=== PATIENT | female | born 1965 | race Caucasian/White ===

== ENCOUNTER 2019-08-07 17:48 | Inpatient (IN) | payer OTHER, MEDICAID, SELFPAY ==
[2019-08-07 18:03] VITALS: BP 181/104; PULSE 81; RESP 18; TEMP 35.1; O2SAT 100; BMI 29.2
[2019-08-07] MEDS: ONDANSETRON 4 MG/2 ML INJ IV (18:13)
[2019-08-07] MEDS: SODIUM CHLORIDE 0.9% 1,000 ML 1000 ML IV (18:14)
[2019-08-07 18:17] LABS: Add Manual Diff / Slide Review NO; Basophils Absolute Auto 100 /uL (0-100); Basophils Percent Auto 0.8 % (0-2); Eosinophils Absolute Auto 0 /uL (0-450); Eosinophils Percent Auto 0.1 % (2-4); Hematocrit 49.8 % (36-46); Hemoglobin 16.6 g/dL (12.0-16.0); Lymphocytes Absolute Auto 1600 /uL (1100-4500); Lymphocytes Percent Auto 10.1 % (25-40); Mean Corpuscular HGB Conc 33.3 % (30-36); Mean Corpuscular Hemoglobin 31.8 PG (26-34); Mean Corpuscular Volume 95.4 fL (80-100); Monocytes Absolute Auto 500 /uL (0-900); Monocytes Percent Auto 3.2 % (3-14); Neutrophils Absolute Auto 13200 /uL (1500-7000); Neutrophils Percent Auto 85.8 % (50-75); Platelet Count 362 X10^3/uL (150-400); Red Blood Cell Count 5.22 X10^6/uL (4.0-5.2); Red Cell Distribution Width 13.8 % (11.6-14.8); White Blood Cell Count 15.4 X10^3/uL (4.5-11.0)
[2019-08-07 18:27] LABS: Alanine Aminotransferase 27 IU/L (<35); Albumin 5.3 g/dL (3.5-5.0); Albumin Globulin Ratio 1.3 (1.0-2.8); Alkaline Phosphatase 155 U/L (38-126); Aspartate Aminotransferase 31 IU/L (14-36); BUN Creatinine Ratio 15.4 (6-22); Bilirubin Total 0.7 mg/dL (0.2-1.3); Blood Urea Nitrogen 16 mg/dL (7-17); Calcium 10.8 mg/dL (8.4-10.2); Carbon Dioxide 21 mmol/L (22-32); Chloride 106 mmol/L (98-107); Globulin 4.1 g/dL (1.7-4.1); Glucose 285 mg/dL (70-100); HEMOLYSIS < 15 (0-50); Potassium 4.2 mmol/L (3.4-5.1); Sodium 142 mmol/L (137-145); Total Protein 9.4 g/dL (6.3-8.2)
--- NOTE | 2019-08-07 18:28 | PC.NURSE ---
Pt refuses to cooperate with assessment. Pt shouting at RNs and RT. Pt demanding PO fluids, not satisfied with offered moist swab.
[2019-08-07 18:33] LABS: Lipase 184 U/L (23-300)
--- NOTE | 2019-08-07 18:53 | ED.NAVMDI ---
HPI - Nausea/Vomiting/Diarrhea General Chief complaint: Nausea/Vomiting/Diarrhea Stated complaint: FEVER, VOMITING Time Seen by Provider: 08/07/19 17:54 Source: patient Mode of arrival: Wheelchair Limitations: no limitations History of Present Illness HPI Narrative: The patient is a 54-year-old female who is very angry agitated and uncooperative. It is really difficult to tell what is real and what is not. No matter where you touch her she complains of pain and discomfort. The patient states that she has been vomiting since this morning. She states ?I can not stop vomiting?. She states this has happened to her before in the past and that she has cyclical vomiting. She denies any hematemesis or coffee-ground emesis. She denies any back pain or dyspnea. Her abdominal pain is crampy in nature and diffuse. She admits to history of pancreatitis but denies a history of any recent fall or injury. She a history of Crohn's disease ulcerative colitis diverticulitis. She smokes cigarettes but does not drink alcohol. She complains of fever chills and sweats without a headache. She has had a mild cough on productive of any sputum. She denies any shortness of breath chest pain palpitations. She has had nausea vomiting and diarrhea without melena or hematochezia. She denies any urinary symptoms. Related Data Previous Rx's Medication Instructions Recorded esomeprazole magnesium [Nexium] 40 mg PO QDAY #30 cap 03/18/17 ibuprofen 800 mg PO QDAY #30 tab 06/19/17 mirtazapine [Remeron] 30 mg PO HS #30 tab 09/03/17 risperidone [Risperdal] 1 mg PO BID #60 tab 09/03/17 Allergies Allergy/AdvReac Type Severity Reaction Status Date / Time cephalexin AdvReac Unknown PANIC Verified 08/07/19 18:03 ATTACK Review of Systems Review of Systems Narrative: Her review of systems are all negative except for those mentioned in the history of present illness. Patient History Medical History (Updated 08/08/19 @ 04:08 by ROHIT Beach) H/O schizophrenia (Acute) Lactic acidosis (Acute) Surgical History (Updated 08/08/19 @ 04:08 by ROHIT Beach) History of cholecystectomy (Acute) Family History (Updated 08/08/19 @ 04:09 by ROHIT Beach) Father H/O agent [place] exposure Social History household members: family Smoking Status: Current every day smoker Smoking Status: Current every day smoker alcohol intake frequency: holidays/special occasions only Substance Use Type: marijuana Exam Narrative Exam Narrative: PHYSICAL EXAM: CONSTITUTIONAL: Awake, Alert, Oriented, Coherent, Cooperative in moderate distress. The patient is lying on her left side in the position. . HEAD: AT/NC EENT: PERRL, FROM of eyes, no discharge, no nystagmus No epistaxis or nasal drainage Oral mucosa is moist and pink, posterior pharynx is without erythema or exudate. NECK: Supple, no obvious JVD, Trachea is midline without stridor, no palpable LN or masses. SPINE: No gross deformity, no palpable tenderness of the cervical, thoracic, lumbar or sacral spine. No CVA tenderness. THORAX: No deformity, retractions, chest wall tenderness, subcutaneous air or crepitice. LUNGS: Clear with symmetrical breath sounds without respiratory distress HEART: Normal heart tones, regular rhythm and rate without murmur. ABDOMEN: Soft, tender diffusely over all 4 quadrants without guarding rebound or rigidity. Bowel sounds are normal. EXTREMITIES: No edema, cyanosis, deformity or tenderness. SKIN: No rash, bruising, petechiae or purpura. NEURO: Awake, alert, oriented, conversive, cranial nerves II-XII are symmetrical and normal, moves all 4 extremities and is ambulatory Initial Vital Signs Initial Vital Signs: Vital Signs Temperature 95.2 F L 08/07/19 18:03 Pulse Rate 81 08/07/19 18:03 Respiratory Rate 18 08/07/19 18:03 Blood Pressure 181/104 H 08/07/19 18:03 Pulse Oximetry 100 08/07/19 18:03 Course Course Course Narrative: 2054 She is not very cooperative. She is very reluctant to answer questions. She is not a good historian at this time. The patient's abdominal series reveals no acute cardiopulmonary pathology or intra-abdominal pathology. Her white blood count is elevated secondary to her vomiting and retching and de margination. Her urinalysis remains pending. Her electrolytes and liver function tests are within normal limits and acceptable. The patient is being treated and hydrated for cyclical vomiting. 2153: The patient has been uncooperative and does not straighten her arm out so that she can receive the IV fluid. Her lactic acid is 4.8. Her white blood count is 15.4. The patient is either severely dehydrated or septic from another cause. Two blood cultures will be obtained on the patient. A noncontrast CT scan of her abdomen has been ordered since she has mild renal insufficiency. This may be due to severe dehydration. The patient is a very poor historian and is very uncooperative. She is refusing all treatment and evaluation. The patient does not realize the potential seriousness of her illness. [address] scan of her abdomen revealed: 1. No obstructive uropathy. 2. Colonic diverticulosis without acute diverticulitis. 3. No bowel obstruction or ascites. The patient's elevated white blood count and lactic acidosis does not appear to be secondary to any acute intra-abdominal pathology. Her CT scan revealed no bowel obstruction, ascites or free air however there were multiple descending colon sigmoid diverticula without any inflammatory changes. There was a tiny fat containing periumbilical hernia and a small hiatal hernia. There was no liver pancreatic or splenic pathology noted nor any appreciable lymphadenopathy. There was no dilated biliary ducts. The patient is being vigorously rehydrated and a repeat lactic acid will be checked on the patient. I urine will also be obtained to check her for urinary tract infection. Her severe lactic acidosis may be secondary to severe dehydration. However, an infection needs to be ruled out. 0110 discussed admitting the patient to the hospital with LUISA Silva. Call back when you have more information including her urinalysis. The patient is refusing to provide us with a urine. She has received 30 cc/kilogram of IV fluid and her repeat lactic acid is 2.4 which remains high. The patient was being treated as though she may have sepsis of unknown etiology at this time 2 blood cultures have been obtained on the patient. 0110 review of her old records reveals that she has not no physician listed in her medical record. The patient has been refusing to provide us with a urine sample. A urine cath specimen has been ordered. The patient has not had a documented fever since being here in the emergency department. 0205 the patient has agreed to being admitted to the hospital. She appears to be much more cooperative at this time but then started vomiting. 8 mg of Zofran has been ordered for the patient as well as 25 mg of Benadryl. This controlled her vomiting earlier during this admission. 0230: I discussed the patient with LUISA Silva who wanted the patient to receive a no other L of fluid and repeat her lactic acid afterwards before she would agree to admit the patient. Orders Ordered: Acetaminophen (Tylenol) 650 mg PO Q6HR PRN PRN Reason: Fever/Mild Pain (1-3) Enoxaparin Sodium (Lovenox) 40 mg SUBCUT DAILY [facility] Last Admin: 08/08/19 09:37 Dose: 40 mg Documented by: PAGE Sodium Chloride (Normal Saline 0.9%) 1,000 mls @ 100 mls/hr IV CONT [facility] Last Admin: 08/08/19 04:54 Dose: 100 mls/hr Documented by: ORALIA Ondansetron HCl (Zofran) 4 mg IV Q6HR [facility] Last Admin: 08/08/19 12:50 Dose: Not Given Documented by: Admin: 08/08/19 05:50 Dose: Not Given Documented by: PARTH Promethazine HCl (Phenadoz) 12.5 mg [place] Q6HR PRN PRN Reason: Nausea And Vomiting Sodium Chloride (Normal Saline 0.9% Flush) 10 ml IV PRN PRN PRN Reason: Flush Sodium Chloride (Normal Saline 0.9% Flush) 10 ml IV BID [facility] Discontinued Medications Diphenhydramine HCl (Benadryl) 50 mg IV NOW ONE Stop: 08/07/19 18:52 Last Admin: 08/07/19 19:23 Dose: 50 mg Documented by: LIYAM Diphenhydramine HCl (Benadryl) 25 mg IV NOW ONE Stop: 08/08/19 02:18 Last Admin: 08/08/19 02:58 Dose: 25 mg Documented by: HUMA Haloperidol (Haldol) 2 mg IM NOW ONE Stop: 08/07/19 21:53 Last Admin: 08/07/19 22:19 Dose: 2 mg Documented by: HARSHIL Sodium Chloride (Normal Saline 0.9%) 1,000 mls @ 1,000 mls/hr IV BOLUS ONE Stop: 08/07/19 18:53 Last Infusion: 08/07/19 22:02 Dose: 0 mls/hr Documented by: Admin: 08/07/19 18:14 Dose: 1,000 mls/hr Documented by: HARSHIL Sodium Chloride (Normal Saline 0.9%) 2,177.25 mls @ 725.75 mls/hr 30 ml/kg infuse over 3 hr (2177.25 ml) IV NOW ONE Stop: 08/08/19 02:13 Last Infusion: 08/08/19 04:20 Dose: 0 mls/hr Documented by: Admin: 08/07/19 23:19 Dose: 725.75 mls/hr Documented by: HARSHIL Piperacillin/Tazobactam/Dextrose (Zosyn) 4.5 gm in 100 mls @ 200 mls/hr IV NOW ONE Stop: 08/08/19 01:33 Last Infusion: 08/08/19 02:57 Dose: 0 mls/hr Documented by: Admin: 08/08/19 02:14 Dose: 200 mls/hr Documented by: HUMA Vancomycin HCl (Vancomycin) 1,000 mg in 200 mls @ 200 mls/hr IV NOW ONE Stop: 08/08/19 02:03 Last Infusion: 08/08/19 04:20 Dose: 0 mls/hr Documented by: Admin: 08/08/19 02:58 Dose: 200 mls/hr Documented by: HUMA Ondansetron HCl 8 mg/ Sodium (Chloride) 54 mls @ 216 mls/hr IV NOW ONE Stop: 08/08/19 02:18 Last Infusion: 08/08/19 03:29 Dose: 0 mls/hr Documented by: Admin: 08/08/19 02:58 Dose: 216 mls/hr Documented by: HUMA Potassium Chloride 40 meq/ (Sodium Chloride) 520 mls @ 130 mls/hr IV NOW ONE Stop: 08/08/19 08:00 Last Admin: 08/08/19 05:54 Dose: 130 mls/hr Documented by: PARTH Cosigned by: RIK Lorazepam (Ativan) 1 mg IV NOW ONE Stop: 08/07/19 22:32 Last Admin: 08/07/19 22:37 Dose: 1 mg Documented by: HARSHIL Ondansetron HCl (Zofran) 4 mg IV NOW ONE Stop: 08/07/19 17:55 Last Admin: 08/07/19 18:13 Dose: 4 mg Documented by: HARSHIL Vancomycin HCl (Vancomycin) 125 mg PO QID [facility] Vital Signs Vital signs: Vital Signs - 8 hr 08/07/19 20:21 08/07/19 21:22 08/07/19 23:18 Pulse Rate 85 54 L 51 L Respiratory Rate 20 20 Blood Pressure [Left Arm] 179/70 H 148/86 H 143/64 H Pulse Oximetry 98 99 99 08/08/19 00:29 Pulse Rate 67 Respiratory Rate 20 Blood Pressure [Left Arm] 181/86 H Pulse Oximetry 96 MDM - Nausea/Vomiting/Diarrhea Lab Data Result diagrams: 08/08/19 03:45 08/08/19 03:45 Labs: Lab Results 08/07/19 08/07/19 08/07/19 Range/Units 18:00 18:00 18:00 WBC 15.4 H (4.5-11.0) X10^3/uL RBC 5.22 H (4.0-5.2) X10^6/uL Hgb 16.6 H (12.0-16.0) g/dL Hct 49.8 H (36-46) % MCV 95.4 (80-100) fL MCH 31.8 (26-34) PG MCHC 33.3 (30-36) % RDW 13.8 (11.6-14.8) % Plt Count 362 (150-400) X10^3/uL Neut % (Auto) 85.8 H (50-75) % Lymph % (Auto) 10.1 L (25-40) % Schley % (Auto) 3.2 (3-14) % Eos % (Auto) 0.1 L (2-4) % Baso % (Auto) 0.8 (0-2) % Neut # (Auto) 04945 H (5593-5782) /uL Lymph # (Auto) 1600 (1276-8441) /uL Schley # (Auto) 500 (0-900) /uL Eos # (Auto) 0 (0-450) /uL Baso # (Auto) 100 (0-100) /uL ESR (0-20) MM/HR Sodium 142 (137-145) mmol/L Potassium 4.2 (3.4-5.1) mmol/L Chloride 106 (98-107) mmol/L Carbon Dioxide 21 L (22-32) mmol/L BUN 16 (7-17) mg/dL Creatinine 1.04 (0.52-1.04) mg/dL Estimated GFR 55.0 L (>60) mL/min BUN/Creatinine Ratio 15.4 (6-22) Glucose 285 H (70-100) mg/dL Lactate (0.7-2.1) mmol/L Calcium 10.8 H (8.4-10.2) mg/dL Magnesium (1.6-2.3) mg/dL Total Bilirubin 0.7 (0.2-1.3) mg/dL AST 31 (14-36) IU/L ALT 27 (<35) IU/L Alkaline Phosphatase 155 H (38-126) U/L C-Reactive Protein (<1.0) mg/dL Total Protein 9.4 H (6.3-8.2) g/dL Albumin 5.3 H (3.5-5.0) g/dL Globulin 4.1 (1.7-4.1) g/dL Albumin/Globulin Ratio 1.3 (1.0-2.8) Lipase 184 (23-300) U/L Procalcitonin (<0.5) ng/mL Urine Color Urine Appearance Urine pH (4.5-8.0) Ur Specific [place] (1.000-1.035) Urine Protein (Negative) Urine Glucose (UA) (Negative) g/dL Urine Ketones (NEGATIVE) Urine Occult Blood (Negative) Urine Nitrate (Negative) Urine Bilirubin (NEGATIVE) Urine Urobilinogen (0.2) E.U./dL Ur Leukocyte Esterase (NEGATIVE) Urine RBC (0-5/HPF) Urine WBC (0-5/HPF) Ur Squamous Epith Cells (0-5/HPF) Urine Bacteria (None) Hyaline Casts (None) Urine Mucus (Negative) Ur Culture Indicated? Ketones (<0.27) mmol/L 08/07/19 08/07/19 08/07/19 Range/Units 18:00 18:00 18:00 WBC (4.5-11.0) X10^3/uL RBC (4.0-5.2) X10^6/uL Hgb (12.0-16.0) g/dL Hct (36-46) % MCV (80-100) fL MCH (26-34) PG MCHC (30-36) % RDW (11.6-14.8) % Plt Count (150-400) X10^3/uL Neut % (Auto) (50-75) % Lymph % (Auto) (25-40) % Schley % (Auto) (3-14) % Eos % (Auto) (2-4) % Baso % (Auto) (0-2) % Neut # (Auto) (4448-2953) /uL Lymph # (Auto) (4296-2681) /uL Schley # (Auto) (0-900) /uL Eos # (Auto) (0-450) /uL Baso # (Auto) (0-100) /uL ESR 4 (0-20) MM/HR Sodium (137-145) mmol/L Potassium (3.4-5.1) mmol/L Chloride (98-107) mmol/L Carbon Dioxide (22-32) mmol/L BUN (7-17) mg/dL Creatinine (0.52-1.04) mg/dL Estimated GFR (>60) mL/min BUN/Creatinine Ratio (6-22) Glucose (70-100) mg/dL Lactate 4.8 H* (0.7-2.1) mmol/L Calcium (8.4-10.2) mg/dL Magnesium (1.6-2.3) mg/dL Total Bilirubin (0.2-1.3) mg/dL AST (14-36) IU/L ALT (<35) IU/L Alkaline Phosphatase (38-126) U/L C-Reactive Protein 2.0 H (<1.0) mg/dL Total Protein (6.3-8.2) g/dL Albumin (3.5-5.0) g/dL Globulin (1.7-4.1) g/dL Albumin/Globulin Ratio (1.0-2.8) Lipase (23-300) U/L Procalcitonin (<0.5) ng/mL Urine Color Urine Appearance Urine pH (4.5-8.0) Ur Specific [place] (1.000-1.035) Urine Protein (Negative) Urine Glucose (UA) (Negative) g/dL Urine Ketones (NEGATIVE) Urine Occult Blood (Negative) Urine Nitrate (Negative) Urine Bilirubin (NEGATIVE) Urine Urobilinogen (0.2) E.U./dL Ur Leukocyte Esterase (NEGATIVE) Urine RBC (0-5/HPF) Urine WBC (0-5/HPF) Ur Squamous Epith Cells (0-5/HPF) Urine Bacteria (None) Hyaline Casts (None) Urine Mucus (Negative) Ur Culture Indicated? Ketones (<0.27) mmol/L 08/07/19 08/07/19 08/08/19 Range/Units 18:00 23:45 00:50 WBC (4.5-11.0) X10^3/uL RBC (4.0-5.2) X10^6/uL Hgb (12.0-16.0) g/dL Hct (36-46) % MCV (80-100) fL MCH (26-34) PG MCHC (30-36) % RDW (11.6-14.8) % Plt Count (150-400) X10^3/uL Neut % (Auto) (50-75) % Lymph % (Auto) (25-40) % Schley % (Auto) (3-14) % Eos % (Auto) (2-4) % Baso % (Auto) (0-2) % Neut # (Auto) (2690-3026) /uL Lymph # (Auto) (9797-8786) /uL Schley # (Auto) (0-900) /uL Eos # (Auto) (0-450) /uL Baso # (Auto) (0-100) /uL ESR (0-20) MM/HR Sodium (137-145) mmol/L Potassium (3.4-5.1) mmol/L Chloride (98-107) mmol/L Carbon Dioxide (22-32) mmol/L BUN (7-17) mg/dL Creatinine (0.52-1.04) mg/dL Estimated GFR (>60) mL/min BUN/Creatinine Ratio (6-22) Glucose (70-100) mg/dL Lactate 2.4 H (0.7-2.1) mmol/L Calcium (8.4-10.2) mg/dL Magnesium (1.6-2.3) mg/dL Total Bilirubin (0.2-1.3) mg/dL AST (14-36) IU/L ALT (<35) IU/L Alkaline Phosphatase (38-126) U/L C-Reactive Protein (<1.0) mg/dL Total Protein (6.3-8.2) g/dL Albumin (3.5-5.0) g/dL Globulin (1.7-4.1) g/dL Albumin/Globulin Ratio (1.0-2.8) Lipase (23-300) U/L Procalcitonin < 0.05 (<0.5) ng/mL Urine Color Yellow Urine Appearance Clear Urine pH 6.0 (4.5-8.0) Ur Specific [place] 1.025 (1.000-1.035) Urine Protein 1+ H (Negative) Urine Glucose (UA) Negative (Negative) g/dL Urine Ketones 1+ H (NEGATIVE) Urine Occult Blood 1+ H (Negative) Urine Nitrate Negative (Negative) Urine Bilirubin Negative (NEGATIVE) Urine Urobilinogen 0.2 (0.2) E.U./dL Ur Leukocyte Esterase Negative (NEGATIVE) Urine RBC 1-5/hpf (0-5/HPF) Urine WBC None seen (0-5/HPF) Ur Squamous Epith Cells 1-5 /hpf (0-5/HPF) Urine Bacteria Few (2-10) H (None) Hyaline Casts 0-1/lpf (None) Urine Mucus 2+ H (Negative) Ur Culture Indicated? Cult not indicated Ketones (<0.27) mmol/L 08/08/19 08/08/19 08/08/19 Range/Units 03:45 03:45 03:45 WBC 13.8 H (4.5-11.0) X10^3/uL RBC 4.10 (4.0-5.2) X10^6/uL Hgb 13.0 (12.0-16.0) g/dL Hct 39.3 (36-46) % MCV 95.9 (80-100) fL MCH 31.8 (26-34) PG MCHC 33.2 (30-36) % RDW 13.9 (11.6-14.8) % Plt Count 215 (150-400) X10^3/uL Neut % (Auto) 90.9 H (50-75) % Lymph % (Auto) 6.4 L (25-40) % Schley % (Auto) 2.4 L (3-14) % Eos % (Auto) 0.0 L (2-4) % Baso % (Auto) 0.3 (0-2) % Neut # (Auto) 21365 H (0254-6095) /uL Lymph # (Auto) 900 L (1918-4383) /uL Schley # (Auto) 300 (0-900) /uL Eos # (Auto) 0 (0-450) /uL Baso # (Auto) 0 (0-100) /uL ESR (0-20) MM/HR Sodium 143 (137-145) mmol/L Potassium 4.1 (3.4-5.1) mmol/L Chloride 112 H (98-107) mmol/L Carbon Dioxide 23 (22-32) mmol/L BUN 14 (7-17) mg/dL Creatinine 0.81 (0.52-1.04) mg/dL Estimated GFR > 60.0 (>60) mL/min BUN/Creatinine Ratio 17.3 (6-22) Glucose 156 H D (70-100) mg/dL Lactate 2.1 (0.7-2.1) mmol/L Calcium 8.3 L (8.4-10.2) mg/dL Magnesium 2.1 (1.6-2.3) mg/dL Total Bilirubin 0.3 (0.2-1.3) mg/dL AST 26 (14-36) IU/L ALT 19 (<35) IU/L Alkaline Phosphatase 82 D (38-126) U/L C-Reactive Protein (<1.0) mg/dL Total Protein 6.8 (6.3-8.2) g/dL Albumin 3.8 (3.5-5.0) g/dL Globulin 3.0 (1.7-4.1) g/dL Albumin/Globulin Ratio 1.3 (1.0-2.8) Lipase (23-300) U/L Procalcitonin (<0.5) ng/mL Urine Color Urine Appearance Urine pH (4.5-8.0) Ur Specific [place] (1.000-1.035) Urine Protein (Negative) Urine Glucose (UA) (Negative) g/dL Urine Ketones (NEGATIVE) Urine Occult Blood (Negative) Urine Nitrate (Negative) Urine Bilirubin (NEGATIVE) Urine Urobilinogen (0.2) E.U./dL Ur Leukocyte Esterase (NEGATIVE) Urine RBC (0-5/HPF) Urine WBC (0-5/HPF) Ur Squamous Epith Cells (0-5/HPF) Urine Bacteria (None) Hyaline Casts (None) Urine Mucus (Negative) Ur Culture Indicated? Ketones (<0.27) mmol/L 20/20 Range/Units 03:45 WBC (4.5-11.0) X10^3/uL RBC (4.0-5.2) X10^6/uL Hgb (12.0-16.0) g/dL Hct (36-46) % MCV (80-100) fL MCH (26-34) PG MCHC (30-36) % RDW (11.6-14.8) % Plt Count (150-400) X10^3/uL Neut % (Auto) (50-75) % Lymph % (Auto) (25-40) % Sch[place] % (Auto) (3-14) % Eos % (Auto) (2-4) % Baso % (Auto) (0-2) % Neut # (Auto) (8668-9953) /uL Lymph # (Auto) (6079-9839) /uL Schley # (Auto) (0-900) /uL Eos # (Auto) (0-450) /uL Baso # (Auto) (0-100) /uL ESR (0-20) MM/HR Sodium (137-145) mmol/L Potassium (3.4-5.1) mmol/L Chloride (98-107) mmol/L Carbon Dioxide (22-32) mmol/L BUN (7-17) mg/dL Creatinine (0.52-1.04) mg/dL Estimated GFR (>60) mL/min BUN/Creatinine Ratio (6-22) Glucose (70-100) mg/dL Lactate (0.7-2.1) mmol/L Calcium (8.4-10.2) mg/dL Magnesium (1.6-2.3) mg/dL Total Bilirubin (0.2-1.3) mg/dL AST (14-36) IU/L ALT (<35) IU/L Alkaline Phosphatase (38-126) U/L C-Reactive Protein (<1.0) mg/dL Total Protein (6.3-8.2) g/dL Albumin (3.5-5.0) g/dL Globulin (1.7-4.1) g/dL Albumin/Globulin Ratio (1.0-2.8) Lipase (23-300) U/L Procalcitonin (<0.5) ng/mL Urine Color Urine Appearance Urine pH (4.5-8.0) Ur Specific [place] (1.000-1.035) Urine Protein (Negative) Urine Glucose (UA) (Negative) g/dL Urine Ketones (NEGATIVE) Urine Occult Blood (Negative) Urine Nitrate (Negative) Urine Bilirubin (NEGATIVE) Urine Urobilinogen (0.2) E.U./dL Ur Leukocyte Esterase (NEGATIVE) Urine RBC (0-5/HPF) Urine WBC (0-5/HPF) Ur Squamous Epith Cells (0-5/HPF) Urine Bacteria (None) Hyaline Casts (None) Urine Mucus (Negative) Ur Culture Indicated? Ketones 0.06 (<0.27) mmol/L ECG Data Attestation: I personally reviewed and interpreted this ECG as follows: Interpretation: The patient's EKG reveals a ventricular rate of 48 with a sinus bradycardia. She has inverted T-wave in lead III and V1. There are no other inverted T-waves or abnormal ST segments. The patient's EKG is otherwise normal. Discharge Plan Departure Patient Disposition: Admitted as Observation Clinical Impression: H/O schizophrenia, Cyclical vomiting, Acidosis, lactic, Dehydration Leukocytosis Qualifiers: Leukocytosis type: bandemia Qualified Code(s): D72.825 - Bandemia Discharge Date/Time: 08/08/19 04:25 Admit Date/Time: 08/08/19 03:50 Admit Provider: Val Silva ED Sign-out Cosign ED Attending Cosignature Attestation: I was immediately available in the department for consultation. This documentation has been reviewed and I agree with assessment and plan. Supervised by Teofilo Rider MD
--- NOTE | 2019-08-07 19:15 | DI.RAD.S_ITS ---
PROCEDURE: XR ACUTE ABDOMEN SERIES INDICATIONS: cyclical vomiting abdominal pain, diffuse vomiting TECHNIQUE: One view chest and two views of the abdomen were acquired. COMPARISON: [facility], , ABDOMEN ACUTE SERIES, 08/29/2015, 0:18. FINDINGS: Surgical changes and devices: None. Chest: Lungs are clear. Heart size is normal. No pleural effusions. No pneumoperitoneum. Abdomen: Cholecystectomy clips Bowel gas pattern is normal. No suspicious calcifications. Visualized solid organ contours appear normal. Bones: No suspicious bony lesions. IMPRESSION: No evidence of acute pulmonary process. No evidence of acute abdominal process Dictated by: Portillo Baig M.D. on 08/07/2019 at 19:56 Approved by: Portillo Baig M.D. on 08/07/2019 at 19:58
[2019-08-07] MEDS: diphenhydrAMINE 50 MG/ML VIAL IV (19:23)
[2019-08-07 20:21] VITALS: BP 179/70; PULSE 85; RESP 20; O2SAT 98
--- NOTE | 2019-08-07 20:28 | PC.NURSE ---
Pt refusing orthostatic vital sign measurement. Pt refusing to provide urine.
[2019-08-07 21:22] VITALS: BP 148/86; PULSE 54; RESP 20; O2SAT 99
--- NOTE | 2019-08-07 21:52 | DI.CT.S_ITS ---
PROCEDURE: CT ABDOMEN PELVIS WO CON INDICATIONS: uncooperative, complains of NV with abdominal pain and lacti TECHNIQUE: Noncontrast 5 mm thick sections acquired from the diaphragms to the symphysis. 5 mm coronal and sagittal reformats were then performed. For radiation dose reduction, the following was used: automated exposure control, adjustment of mA and/or kV according to patient size. COMPARISON: [facility], CR, XR ACUTE ABDOMEN SERIES, 08/07/2019, 19:15. [facility], CT, ABDOMEN/PELVIS WITH CONTRAST, 08/27/2015, 13:30. [facility], CT, ABDOMEN/PELVIS WITH CONTRAST, 03/13/2017, 5:50. FINDINGS: Image quality: Excellent. ABDOMEN: Lung bases: Lung bases are clear. Heart size is normal. Solid organs: Liver is normal in size. Gallbladder is surgically absent. Pancreas is normal in contours. Spleen is normal in size. No adrenal nodules. Kidneys are normal in size, without hydronephrosis or nephrolithiasis. Peritoneum and bowel: Mild thickening and stranding of the terminal ileum. There are multiple colonic diverticula. No findings to suggest acute diverticulitis. Unenhanced bowel loops demonstrate normal wall thickness and caliber. There are numerous colonic diverticula. No free fluid or air. Nodes and vessels: No retroperitoneal or mesenteric adenopathy by size criteria. Aorta and inferior vena cava are normal in caliber. Miscellaneous: No ventral hernias. PELVIS: Genitourinary: Bladder wall thickness is normal. Normal uterus and ovaries. Miscellaneous: No inguinal hernias or adenopathy. Bones: No suspicious bony lesions. No vertebral body compression fractures. IMPRESSION: 1. Mild thickening and stranding of the terminal ileum. This finding could be related to Crohn's disease or infectious etiology. Recommend clinical correlation. If clinically indicated, a CT arthrography may be helpful. 2. Diverticulosis without diverticulitis. 3. No renal stone hydronephrosis. The result was discussed with Dr. Franklin. Dictated by: Hoang Armas M.D. on 08/08/2019 at 7:51 Approved by: Hoang Armas M.D. on 08/08/2019 at 11:46
[2019-08-07] MEDS: HALOPERIDOL 5 MG/ML VIAL 2 MG IM (22:19)
[2019-08-07] MEDS: LORazepam 2 MG/ML INJ 1 MG IV (22:37)
[2019-08-07 23:18] VITALS: BP 143/64; PULSE 51; O2SAT 99
[2019-08-07] MEDS: SODIUM CHLORIDE 0.9% 2,177.25 ML 725.75 ML IV (23:19)
[2019-08-07 23:35] LABS: Reflexed Lactate in 2 Hours Y
[2019-08-08] VITALS (12 sets, daily range): BP systolic 105–181; BP diastolic 63–88; PULSE 57–90; RESP 16–20; TEMP 36.5–38.8; O2SAT 91–98; BMI 29.4
[2019-08-08 00:04] LABS: Lactate 2HR (Lactic Acid Rflx) 2.4 mmol/L (0.7-2.1)
[2019-08-08 00:56] LABS: WBC Urine None Seen (0-5/HPF)
[2019-08-08 00:58] LABS: Appearance Urine UA CLEAR; Bilirubin Urine UA NEGATIVE (NEGATIVE); Color Urine UA YELLOW; Glucose Urine UA NEGATIVE (Negative); Ketones Urine UA 1+ (NEGATIVE); Leukocyte Esterase Urine UA NEGATIVE (NEGATIVE); Nitrite Urine UA NEGATIVE (Negative); Occult Blood Urine UA 1+ (Negative); Protein Urine UA 1+ (Negative); Specific Gravity Urine UA 1.025 (1.000-1.035); Urobilinogen Urine UA 0.2 E.U./dL (0.2)
[2019-08-08 01:17] LABS: Bacteria Urine Few (2-10); Mucus Urine 2+ (Negative); RBC Urine 1-5/HPF (0-5/HPF); Squamous Epithelial Cell Urine 1-5 /HPF (0-5/HPF)
[2019-08-08 01:18] LABS: Culture Indicated Urine Cult Not Indicated; Hyaline Casts Urine 0-1/LPF
[2019-08-08 02:00] LABS: Erythrocyte Sedimentation Rate 4 MM/HR (0-20)
[2019-08-08] MEDS: PIPERACILLIN-TAZO 4.5 GM/100 ML FROZ.PIGGY IV (02:14)
[2019-08-08] MEDS: ONDANSETRON 8 MG in SODIUM CHLORIDE 0.9% 50 ML 216 ML IV (02:58)
[2019-08-08] MEDS: VANCOMYCIN 1,000 MG/200 ML PIGGYBACK 200 MG IV (02:58)
[2019-08-08] MEDS: diphenhydrAMINE 50 MG/ML VIAL 25 MG IV (02:58)
--- NOTE | 2019-08-08 04:02 | P.HP_ITS ---
History of Present Illness History of Present Illness Date Patient Seen: 08/08/19 Time Patient Seen: 03:00 Chief complaint: FEVER, VOMITING Narrative: Kasie Isabel is a 54-year-old female with a history of schizophrenia who sees a ?Dr. Sargent on [facility] in [place] ?. She presented to the ED today with subjective fever and vomiting. She has a very difficult historian, initially she was very uncooperative with staff and their assessment of her. She initially refused to allow for lab draws or provide a urine for a urinalysis. Patient states that she does not currently take any medications and that the only chronic health problem she has is schizophrenia. When informed of her blood sugars I asked if she had anybody in her family that had diabetes and she answered ?my old man does?. Patient was asked to be admitted due to an elevated white count of 15 and a lactic acidosis of 4.8 on admission which then dropped to 2.4 after the patient had been given 2 L of normal saline. In the ED they gave her Zosyn 4.5 mg and vancomycin IV. Patient states that she was feeling hot though they told her she was ?cold?. She states she has abdominal cramps and has been throwing up over the past day. She was taking care of her grandson who throughout the day before. She does endorse urinating a lot over the past year, has a diagnosis of schizophrenia and does not regularly follow up with her PCP. She denies any shortness of breath, chest pain, diarrhea or constipation, numbing or tingling of her upper lower extremities. Patient History Medical History (Updated 08/08/19 @ 04:08 by ROHIT [place]) H/O schizophrenia (Acute) Lactic acidosis (Acute) Surgical History (Updated 08/08/19 @ 04:08 by ROHIT [place]) History of cholecystectomy (Acute) Family & Social History Family History (Updated 08/08/19 @ 04:09 by ROHIT [place]) Father H/O agent [place] exposure Safety & Behavioral: Feels Safe in Current Yes Environment Been Physically Hurt or No Threatened By a Person Tobacco & Substance use: Smoking Status Current every day smoker alcohol intake frequency holiday/special occasion Substance Use Type marijuana Meds Home Medications and Allergies Home Medications Medication Instructions Recorded Confirmed Type esomeprazole magnesium [Nexium] 40 mg PO QDAY #30 cap 03/18/17 Rx ibuprofen 800 mg PO QDAY #30 tab 06/19/17 Rx mirtazapine [Remeron] 30 mg PO HS #30 tab 09/03/17 Rx risperidone [Risperdal] 1 mg PO BID #60 tab 09/03/17 Rx Allergies Allergy/AdvReac Type Severity Reaction Status Date / Time cephalexin AdvReac Unknown PANIC Verified 08/07/19 18:03 ATTACK Review of Systems Review of Systems ROS: Yes All systems reviewed with the patient and are negative except as otherwise documented Exam Vital Signs (past 8 hours): - 08/07/19 20:21 08/07/19 21:22 08/07/19 23:18 Pulse Rate 85 54 L 51 L Respiratory Rate 20 20 Blood Pressure [Left Arm] 179/70 H 148/86 H 143/64 H Pulse Oximetry 98 99 99 08/08/19 00:29 Pulse Rate 67 Respiratory Rate 20 Blood Pressure [Left Arm] 181/86 H Pulse Oximetry 96 Oxygen Delivery Method Room Air Narrative Exam Narrative: Gen: Lethargic but arousable well-nourished 54 y.o. female appears to be uncomfortable HEENT: normocephalic, atraumatic, conjunctiva clear, sclera non-icteric, oral mucosa pink and moist Neck: supple, full ROM Resp: Lungs CTA, non-labored breathing CV: RRR, no murmur or rubs Abd: Tenderness in the upper epigastric area, soft, normoactive BTs Skin: no lesions or rashes, dry and intact Neuro: Alert to herself w/no focal deficits Extremities: moves all 4 extremities, is ambulatory, negative Dave?s sign Psyche: Anxious and mildly agitated Objective Labs Result Diagrams: 08/08/19 03:45 08/08/19 03:45 Labs: Laboratory Results - last 24 hr 08/07/19 08/07/19 08/07/19 18:00 18:00 18:00 WBC 15.4 H RBC 5.22 H Hgb 16.6 H Hct 49.8 H MCV 95.4 MCH 31.8 MCHC 33.3 RDW 13.8 Plt Count 362 Neut % (Auto) 85.8 H Lymph % (Auto) 10.1 L [place] % (Auto) 3.2 Eos % (Auto) 0.1 L Baso % (Auto) 0.8 Neut # (Auto) 18785 H Lymph # (Auto) 1600 [place] # (Auto) 500 Eos # (Auto) 0 Baso # (Auto) 100 ESR Sodium 142 Potassium 4.2 Chloride 106 Carbon Dioxide 21 L BUN 16 Creatinine 1.04 Estimated GFR 55.0 L BUN/Creatinine Ratio 15.4 Glucose 285 H Lactate Calcium 10.8 H Total Bilirubin 0.7 AST 31 ALT 27 Alkaline Phosphatase 155 H C-Reactive Protein Total Protein 9.4 H Albumin 5.3 H Globulin 4.1 Albumin/Globulin Ratio 1.3 Lipase 184 Urine Color Urine Appearance Urine pH Ur Specific [place] Urine Protein Urine Glucose (UA) Urine Ketones Urine Occult Blood Urine Nitrate Urine Bilirubin Urine Urobilinogen Ur Leukocyte Esterase Urine RBC Urine WBC Ur Squamous Epith Cells Urine Bacteria Hyaline Casts Urine Mucus Ur Culture Indicated? 08/07/19 08/07/19 08/07/19 18:00 18:00 18:00 WBC RBC Hgb Hct MCV MCH MCHC RDW Plt Count Neut % (Auto) Lymph % (Auto) [place] % (Auto) Eos % (Auto) Baso % (Auto) Neut # (Auto) Lymph # (Auto) [place] # (Auto) Eos # (Auto) Baso # (Auto) ESR 4 Sodium Potassium Chloride Carbon Dioxide BUN Creatinine Estimated GFR BUN/Creatinine Ratio Glucose Lactate 4.8 H* Calcium Total Bilirubin AST ALT Alkaline Phosphatase C-Reactive Protein 2.0 H Total Protein Albumin Globulin Albumin/Globulin Ratio Lipase Urine Color Urine Appearance Urine pH Ur Specific [place] Urine Protein Urine Glucose (UA) Urine Ketones Urine Occult Blood Urine Nitrate Urine Bilirubin Urine Urobilinogen Ur Leukocyte Esterase Urine RBC Urine WBC Ur Squamous Epith Cells Urine Bacteria Hyaline Casts Urine Mucus Ur Culture Indicated? 08/07/19 08/08/19 23:45 00:50 WBC RBC Hgb Hct MCV MCH MCHC RDW Plt Count Neut % (Auto) Lymph % (Auto) [place] % (Auto) Eos % (Auto) Baso % (Auto) Neut # (Auto) Lymph # (Auto) [place] # (Auto) Eos # (Auto) Baso # (Auto) ESR Sodium Potassium Chloride Carbon Dioxide BUN Creatinine Estimated GFR BUN/Creatinine Ratio Glucose Lactate 2.4 H Calcium Total Bilirubin AST ALT Alkaline Phosphatase C-Reactive Protein Total Protein Albumin Globulin Albumin/Globulin Ratio Lipase Urine Color Yellow Urine Appearance Clear Urine pH 6.0 Ur Specific [place] 1.025 Urine Protein 1+ H Urine Glucose (UA) Negative Urine Ketones 1+ H Urine Occult Blood 1+ H Urine Nitrate Negative Urine Bilirubin Negative Urine Urobilinogen 0.2 Ur Leukocyte Esterase Negative Urine RBC 1-5/hpf Urine WBC None seen Ur Squamous Epith Cells 1-5 /hpf Urine Bacteria Few (2-10) H Hyaline Casts 0-1/lpf Urine Mucus 2+ H Ur Culture Indicated? Cult not indicated Assessment & Plan Assessment & Plan narrative: Kasie Isabel is a 54-year-old female who will be placed in observation, hydrated and observed for a leukocytosis of unknown etiology. 1. Leukocytosis of unknown origin, acute, present on admission -with aggressive hydration the patient's lactate level was 4.8 on admission and is now normalized at 4:00 a.m.. -WBC and procalcitonin pending -I will hold on antibiotics until blood cultures come back and if they are positive will resume -suspect patient's leukocytosis and elevated lactate were due to severe dehydration as a result of her nausea and vomiting. -suspect viral gastroenteritis 2. . Intractable nausea and vomiting, acute, present on admission -Zofran 4 mg IV Q 6 hours as needed for nausea and vomiting and Phenergan suppositories Q 6 hours if needed in between doses 3. Elevated glucose without a diagnosis of diabetes, present on admission, suspected undiagnosed and untreated Diabetes Type 2 -glucose was 285 on admission and had a slight reduction in her GFR, it it is not known at this is her baseline -hemoglobin A1c is pending -Anion gap is slightly elevated at 15 -betahydroxybutrate pending 4. Hypokalemia, acute, present on admission -patient will receive 40 mEq of KCl riders FEN: Normal saline at 100 mL/hour, clear liquid diet as tolerated, chemistries in the am Patient is placed into observation as her stay is likely to exceed 2 midnights. VTE Prophylaxis: []Bilateral SCDs, enoxaparin 40 mg subQ daily Medications reconciled: pending verification from pharmacy, patient denies currently taking any medications Disposition: likely discharge to home today Code Status: Full code
[2019-08-08 04:05] LABS: Lactate (Lactic Acid) 2.1 mmol/L (0.7-2.1)
[2019-08-08 04:22] LABS: Add Manual Diff / Slide Review NO; Basophils Absolute Auto 0 /uL (0-100); Basophils Percent Auto 0.3 % (0-2); Eosinophils Absolute Auto 0 /uL (0-450); Hematocrit 39.3 % (36-46); Lymphocytes Absolute Auto 900 /uL (1100-4500); Lymphocytes Percent Auto 6.4 % (25-40); Mean Corpuscular HGB Conc 33.2 % (30-36); Mean Corpuscular Hemoglobin 31.8 PG (26-34); Mean Corpuscular Volume 95.9 fL (80-100); Monocytes Absolute Auto 300 /uL (0-900); Monocytes Percent Auto 2.4 % (3-14); Neutrophils Absolute Auto 12500 /uL (1500-7000); Neutrophils Percent Auto 90.9 % (50-75); Platelet Count 215 X10^3/uL (150-400); Red Cell Distribution Width 13.9 % (11.6-14.8); White Blood Cell Count 13.8 X10^3/uL (4.5-11.0)
--- NOTE | 2019-08-08 04:25 | PC.NURSE ---
Arrived via wheelchair from ED. In no acute distress. Self transfer from W/C to bed, gait steady. Introduced to staff and instructed aoc operations intelligence chief light use. Denied pain at this time. Call light within reach.
[2019-08-08 04:28] LABS: Alanine Aminotransferase 19 IU/L (<35); Albumin 3.8 g/dL (3.5-5.0); Albumin Globulin Ratio 1.3 (1.0-2.8); Alkaline Phosphatase 82 U/L (38-126); Aspartate Aminotransferase 26 IU/L (14-36); BUN Creatinine Ratio 17.3 (6-22); Bilirubin Total 0.3 mg/dL (0.2-1.3); Blood Urea Nitrogen 14 mg/dL (7-17); Calcium 8.3 mg/dL (8.4-10.2); Carbon Dioxide 23 mmol/L (22-32); Chloride 112 mmol/L (98-107); Estimated Glomerular Filt Rate > 60.0 mL/min (>60); Glucose 156 mg/dL (70-100); HEMOLYSIS < 15 (0-50); Magnesium 2.1 mg/dL (1.6-2.3); Potassium 4.1 mmol/L (3.4-5.1); Sodium 143 mmol/L (137-145); Total Protein 6.8 g/dL (6.3-8.2)
[2019-08-08] MEDS: SODIUM CHLORIDE 0.9% 1,000 ML 100 ML IV ×2 (04:54→20:02)
[2019-08-08 05:10] LABS: Ketones (Beta-Hydroxybutyrate) 0.06 mmol/L (<0.27)
[2019-08-08 05:37] LABS: Procalcitonin < 0.05 ng/mL (<0.5)
[2019-08-08] MEDS: POTASSIUM CHLORIDE 40 MEQ in SODIUM CHLORIDE 0.9% 500 ML 130 ML IV (05:54)
[2019-08-08] MEDS: ENOXAPARIN 40 MG/0.4 ML SYRINGE SUBCUT (09:37)
[2019-08-08 10:05] LABS: Hemoglobin A1C% w Est Avg Glu 5.4 % (4.0-6.0)
--- NOTE | 2019-08-08 12:10 | PM.PN.1 ---
Subjective Subjective Date Patient Seen: 08/08/19 Exam Vital Signs (past 8 hours): - 08/08/19 04:25 08/08/19 07:50 Temperature 97.7 F 99.6 F Pulse Rate 89 90 Respiratory Rate 18 18 Blood Pressure 117/76 121/74 Pulse Oximetry 98 98 Oxygen Delivery Method Room Air Oxygen Flow Rate 0 Objective Labs Result Diagrams: 08/08/19 03:45 08/08/19 03:45 Labs: Laboratory Results - last 24 hr 08/07/19 08/07/19 08/07/19 18:00 18:00 18:00 WBC 15.4 H RBC 5.22 H Hgb 16.6 H Hct 49.8 H MCV 95.4 MCH 31.8 MCHC 33.3 RDW 13.8 Plt Count 362 Neut % (Auto) 85.8 H Lymph % (Auto) 10.1 L [place] % (Auto) 3.2 Eos % (Auto) 0.1 L Baso % (Auto) 0.8 Neut # (Auto) 88383 H Lymph # (Auto) 1600 [place] # (Auto) 500 Eos # (Auto) 0 Baso # (Auto) 100 ESR Sodium 142 Potassium 4.2 Chloride 106 Carbon Dioxide 21 L BUN 16 Creatinine 1.04 Estimated GFR 55.0 L BUN/Creatinine Ratio 15.4 Glucose 285 H Hemoglobin A1c Lactate Calcium 10.8 H Magnesium Total Bilirubin 0.7 AST 31 ALT 27 Alkaline Phosphatase 155 H C-Reactive Protein Total Protein 9.4 H Albumin 5.3 H Globulin 4.1 Albumin/Globulin Ratio 1.3 Lipase 184 Procalcitonin Urine Color Urine Appearance Urine pH Ur Specific [place] Urine Protein Urine Glucose (UA) Urine Ketones Urine Occult Blood Urine Nitrate Urine Bilirubin Urine Urobilinogen Ur Leukocyte Esterase Urine RBC Urine WBC Ur Squamous Epith Cells Urine Bacteria Hyaline Casts Urine Mucus Ur Culture Indicated? Ketones 08/07/19 08/07/19 08/07/19 18:00 18:00 18:00 WBC RBC Hgb Hct MCV MCH MCHC RDW Plt Count Neut % (Auto) Lymph % (Auto) [place] % (Auto) Eos % (Auto) Baso % (Auto) Neut # (Auto) Lymph # (Auto) [place] # (Auto) Eos # (Auto) Baso # (Auto) ESR 4 Sodium Potassium Chloride Carbon Dioxide BUN Creatinine Estimated GFR BUN/Creatinine Ratio Glucose Hemoglobin A1c Lactate 4.8 H* Calcium Magnesium Total Bilirubin AST ALT Alkaline Phosphatase C-Reactive Protein 2.0 H Total Protein Albumin Globulin Albumin/Globulin Ratio Lipase Procalcitonin Urine Color Urine Appearance Urine pH Ur Specific [place] Urine Protein Urine Glucose (UA) Urine Ketones Urine Occult Blood Urine Nitrate Urine Bilirubin Urine Urobilinogen Ur Leukocyte Esterase Urine RBC Urine WBC Ur Squamous Epith Cells Urine Bacteria Hyaline Casts Urine Mucus Ur Culture Indicated? Ketones 08/07/19 08/07/19 08/08/19 18:00 23:45 00:50 WBC RBC Hgb Hct MCV MCH MCHC RDW Plt Count Neut % (Auto) Lymph % (Auto) [place] % (Auto) Eos % (Auto) Baso % (Auto) Neut # (Auto) Lymph # (Auto) [place] # (Auto) Eos # (Auto) Baso # (Auto) ESR Sodium Potassium Chloride Carbon Dioxide BUN Creatinine Estimated GFR BUN/Creatinine Ratio Glucose Hemoglobin A1c Lactate 2.4 H Calcium Magnesium Total Bilirubin AST ALT Alkaline Phosphatase C-Reactive Protein Total Protein Albumin Globulin Albumin/Globulin Ratio Lipase Procalcitonin < 0.05 Urine Color Yellow Urine Appearance Clear Urine pH 6.0 Ur Specific [place] 1.025 Urine Protein 1+ H Urine Glucose (UA) Negative Urine Ketones 1+ H Urine Occult Blood 1+ H Urine Nitrate Negative Urine Bilirubin Negative Urine Urobilinogen 0.2 Ur Leukocyte Esterase Negative Urine RBC 1-5/hpf Urine WBC None seen Ur Squamous Epith Cells 1-5 /hpf Urine Bacteria Few (2-10) H Hyaline Casts 0-1/lpf Urine Mucus 2+ H Ur Culture Indicated? Cult not indicated Ketones 08/08/19 08/08/19 08/08/19 03:45 03:45 03:45 WBC 13.8 H RBC 4.10 Hgb 13.0 Hct 39.3 MCV 95.9 MCH 31.8 MCHC 33.2 RDW 13.9 Plt Count 215 Neut % (Auto) 90.9 H Lymph % (Auto) 6.4 L [place] % (Auto) 2.4 L Eos % (Auto) 0.0 L Baso % (Auto) 0.3 Neut # (Auto) 00740 H Lymph # (Auto) 900 L [place] # (Auto) 300 Eos # (Auto) 0 Baso # (Auto) 0 ESR Sodium 143 Potassium 4.1 Chloride 112 H Carbon Dioxide 23 BUN 14 Creatinine 0.81 Estimated GFR > 60.0 BUN/Creatinine Ratio 17.3 Glucose 156 H D Hemoglobin A1c Lactate 2.1 Calcium 8.3 L Magnesium 2.1 Total Bilirubin 0.3 AST 26 ALT 19 Alkaline Phosphatase 82 D C-Reactive Protein Total Protein 6.8 Albumin 3.8 Globulin 3.0 Albumin/Globulin Ratio 1.3 Lipase Procalcitonin Urine Color Urine Appearance Urine pH Ur Specific [place] Urine Protein Urine Glucose (UA) Urine Ketones Urine Occult Blood Urine Nitrate Urine Bilirubin Urine Urobilinogen Ur Leukocyte Esterase Urine RBC Urine WBC Ur Squamous Epith Cells Urine Bacteria Hyaline Casts Urine Mucus Ur Culture Indicated? Ketones 08/08/19 08/08/19 03:45 04:00 WBC RBC Hgb Hct MCV MCH MCHC RDW Plt Count Neut % (Auto) Lymph % (Auto) [place] % (Auto) Eos % (Auto) Baso % (Auto) Neut # (Auto) Lymph # (Auto) [place] # (Auto) Eos # (Auto) Baso # (Auto) ESR Sodium Potassium Chloride Carbon Dioxide BUN Creatinine Estimated GFR BUN/Creatinine Ratio Glucose Hemoglobin A1c 5.4 Lactate Calcium Magnesium Total Bilirubin AST ALT Alkaline Phosphatase C-Reactive Protein Total Protein Albumin Globulin Albumin/Globulin Ratio Lipase Procalcitonin Urine Color Urine Appearance Urine pH Ur Specific [place] Urine Protein Urine Glucose (UA) Urine Ketones Urine Occult Blood Urine Nitrate Urine Bilirubin Urine Urobilinogen Ur Leukocyte Esterase Urine RBC Urine WBC Ur Squamous Epith Cells Urine Bacteria Hyaline Casts Urine Mucus Ur Culture Indicated? Ketones 0.06 Quality VTE Deep Vein Thrombosis/Pulmonary Embolism Present on Admission: No
--- NOTE | 2019-08-08 12:12 | PC.NURSE ---
Day Shift- Pt requested to help call her boyfriend Matthew Lwoe. Number in computer is incorrect. Pt unable to recall his number, Pt able to recall her daughters number and get Rods number from her daughter. At 1120, Matthew present in hospital wanting an update. Matthew waiting on unit in front of elevators on a visitor bench. RN Coordinator asked for Dr. Wilson to update Matthew in person. THis Rn updated Matthew at 1130 and was given correct number [phone]. Dr. Wilson was able to update Matthew around 1140. Left message for Matthew at 1150 for Matthew to call pt's direct phone line per pt request. Pt denies nausea, tolerated clear liquid diet slowly this morning. Keep IVF as ordered for now per Dr. Wilson and no change to diet until possibly after lunch. Pt A&OX4, bed alarm on, uses call light appropriately. Cooperative with care.
--- NOTE | 2019-08-08 12:44 | CM.DANOTE ---
DCP Assessment: EMR reviewed: Patient is a 54 yr old female who was admitted for nausea and vomiting. CM/Rn met with patient at the bedside and explained Role. Patient was alert and oriented x3 at time of CM visit. Patient was worried about plan to D/C since she hasn't been able to get a hold of her significant other Matthew. While Cm/RN was in the room patient called her daughter and was able to find out the Matthew was actually on his way to the hospital. Cm/Rn let patient know that currently we are not allowing visitors into the rooms to prevent spread of Covid-19. Patient stated understanding and requested the nursing station down stairs be informed that way patients significant other would be notified to call her room so she can speak with him. CM/RN let the patients nurse know and ENROUTE CONTROLLER know as well. Patient is feeling better today and stated she would like to go home when she is able. I: [employer] and Medicaid. Plan: D/C home when medically stable with her significant other. no identified D/C planning needs noted at this time. CM department will continue to follow to assist with any D/C planning needs that may arise. Lynne Mckenna RN Discharge Planning/Care Management CM Discharge Assessment Start: 08/08/19 12:36 Freq: Status: Active Protocol: Document 08/08/19 12:36 HS (Rec: 08/08/19 12:44 HS [id number]) Discharge Planning Assessment Assigned Maintenance Plumber Lynne Mckenna RN DPOA/Assigned Designee Name Georges Salgado (son) Contact Information [phone] Advance Directives? No History Provided By Patient,Medical Record Has Patient been admitted in last 30 No days? Prior Living Arrangements Apartment/Condo Household Members family Type of transporation used prior to Drives own vehicle admit Independent with ADL's Yes Is patient alert and oriented? Yes Caregiver for Another No Barriers to Discharge No Discharge Plan Home Referrals Initiated None needed Whiteboard Updated in Patient Room with Yes name and ext. # of Maintenance Plumber Review Status In Process Next Review Type Continued Stay Review
--- NOTE | 2019-08-08 18:12 | PC.NURSE ---
Addendum entered by Amna Skinner R.N. 08/08/19 23:38: Resting quietly in bed with eyes closed. No signs of distress or discomfort. No GI complaints verbalized this shift. Addendum entered by Amna Skinner R.N. 08/08/19 20:09: Pt tolerating diet well. Now requests to discharge. Dr. Wilson was informed and orders generated. X RAY PHYSICIAN reports pt's temporal temp 101.8. This medical technical writer reevaluated pt with oral temp 98.4. Pt is not flushed nor does c/o feeling feverish or achey. Another temporal thermometer obtained and temp 99.[address] Wilson informed. Pt to remain in hospital overnight per Dr. Wilson. Pt informed. Tylenol given as per pt request. Original Note: Pt sitting up in bed watching television. States evening meal a little dry and pt reports does not like fish served this evening. Denies nausea and declines scheduled anti-emetic. Denies abdominal pain or discomfort. Dr. Wilson in to see patient and offered pt dc to home. Pt reports didn't eat much for dinner so was given other offerings from nursing pantry and will try. Dr. Wilson desires to know results of this intake. Pt declines to wear scd's.
--- NOTE | 2019-08-08 18:54 | PM.DS.1 ---
History of Present Illness History of Present Illness Date Patient Seen: 08/08/19 Time Patient Seen: 18:55 Chief complaint: FEVER, VOMITING Narrative: Kasie Isabel is a 54-year-old female with a history of schizophrenia who sees a ?Dr. Sargent on [facility] in [place] ?. She presented to the ED today with subjective fever and vomiting. She has a very difficult historian, initially she was very uncooperative with staff and their assessment of her. She initially refused to allow for lab draws or provide a urine for a urinalysis. Patient states that she does not currently take any medications and that the only chronic health problem she has is schizophrenia. When informed of her blood sugars I asked if she had anybody in her family that had diabetes and she answered ?my old man does?. Patient was asked to be admitted due to an elevated white count of 15 and a lactic acidosis of 4.8 on admission which then dropped to 2.4 after the patient had been given 2 L of normal saline. In the ED they gave her Zosyn 4.5 mg and vancomycin IV. Patient states that she was feeling hot though they told her she was ?cold?. She states she has abdominal cramps and has been throwing up over the past day. She was taking care of her grandson who throughout the day before. She does endorse urinating a lot over the past year, has a diagnosis of schizophrenia and does not regularly follow up with her PCP. She denies any shortness of breath, chest pain, diarrhea or constipation, numbing or tingling of her upper lower extremities. Discharge Providers Provider Date of admission: 08/08/19 03:50 Discharge Date: 08/08/19 Discharge provider: Lenore Wilson MD Summary Hospital Course Discharge Diagnosis: 1. Leukocytosis of unknown origin, acute, present on admission 2. . Intractable nausea and vomiting, acute, present on admission 3. Elevated glucose without a diagnosis of diabetes, present on admission, suspected undiagnosed and untreated Diabetes Type 2 4. Hypokalemia, acute, present on admission Hospital Course: 1. Leukocytosis of unknown origin, acute, present on admission -with aggressive hydration the patient's lactate level was 4.8 on admission and as now normalized by 4:00 a.m. today. -WBC dropped from 15.4 to 13.8 -suspect patient's leukocytosis and elevated lactate were due to severe dehydration as a result of her nausea and vomiting. -suspect viral gastroenteritis -she has tolerated a normal day of meals today and so will be going home this evening. Earlier this afternoon I met with her who expressed some concerns about her being discharged from the hospital too soon on previous occasions. He would have preferred that she stay but she wished to go ad there was no medical reason evident to keep her. 2. . Intractable nausea and vomiting, acute, present on admission -resolved 3. Elevated glucose without a diagnosis of diabetes, present on admission -glucose was 285 on admission and had a slight reduction in her GFR, it it is not known at this is her baseline -hemoglobin A1c normal at 5.4 -betahydroxybutrate pending 4. Hypokalemia, acute, present on admission -patient was given 40 mEq of KCl riders 5. Schizophrenia - Resume Mirtazipine and Resperdal at home. Code Status: Full code Exam Vital Signs (past 8 hours): - 08/08/19 16:00 Temperature 100.8 F H Pulse Rate 63 Respiratory Rate 16 Blood Pressure 129/88 Pulse Oximetry 97 Oxygen Delivery Method Room Air Oxygen Flow Rate 0 Narrative Exam Narrative: Alert and oriented x3 without apparent distress. Heart is regular rate and rhythm without murmur. Lungs are clear to auscultation bilaterally. Abdomen is soft, nontender, no organomegaly, bowel sounds active. Extremities no ankle edema Objective Labs Result Diagrams: 08/08/19 03:45 08/08/19 03:45 Labs: Laboratory Results - last 24 hr 08/07/19 08/07/19 08/07/19 18:00 18:00 18:00 WBC RBC Hgb Hct MCV MCH MCHC RDW Plt Count Neut % (Auto) Lymph % (Auto) [place] % (Auto) Eos % (Auto) Baso % (Auto) Neut # (Auto) Lymph # (Auto) [place] # (Auto) Eos # (Auto) Baso # (Auto) ESR 4 Sodium Potassium Chloride Carbon Dioxide BUN Creatinine Estimated GFR BUN/Creatinine Ratio Glucose Hemoglobin A1c Lactate 4.8 H* Calcium Magnesium Total Bilirubin AST ALT Alkaline Phosphatase C-Reactive Protein 2.0 H Total Protein Albumin Globulin Albumin/Globulin Ratio Procalcitonin Urine Color Urine Appearance Urine pH Ur Specific Accident Urine Protein Urine Glucose (UA) Urine Ketones Urine Occult Blood Urine Nitrate Urine Bilirubin Urine Urobilinogen Ur Leukocyte Esterase Urine RBC Urine WBC Ur Squamous Epith Cells Urine Bacteria Hyaline Casts Urine Mucus Ur Culture Indicated? Ketones 08/07/19 08/07/19 08/08/19 18:00 23:45 00:50 WBC RBC Hgb Hct MCV MCH MCHC RDW Plt Count Neut % (Auto) Lymph % (Auto) [place] % (Auto) Eos % (Auto) Baso % (Auto) Neut # (Auto) Lymph # (Auto) [place] # (Auto) Eos # (Auto) Baso # (Auto) ESR Sodium Potassium Chloride Carbon Dioxide BUN Creatinine Estimated GFR BUN/Creatinine Ratio Glucose Hemoglobin A1c Lactate 2.4 H Calcium Magnesium Total Bilirubin AST ALT Alkaline Phosphatase C-Reactive Protein Total Protein Albumin Globulin Albumin/Globulin Ratio Procalcitonin < 0.05 Urine Color Yellow Urine Appearance Clear Urine pH 6.0 Ur Specific Accident 1.025 Urine Protein 1+ H Urine Glucose (UA) Negative Urine Ketones 1+ H Urine Occult Blood 1+ H Urine Nitrate Negative Urine Bilirubin Negative Urine Urobilinogen 0.2 Ur Leukocyte Esterase Negative Urine RBC 1-5/hpf Urine WBC None seen Ur Squamous Epith Cells 1-5 /hpf Urine Bacteria Few (2-10) H Hyaline Casts 0-1/lpf Urine Mucus 2+ H Ur Culture Indicated? Cult not indicated Ketones 08/08/19 08/08/19 08/08/19 03:45 03:45 03:45 WBC 13.8 H RBC 4.10 Hgb 13.0 Hct 39.3 MCV 95.9 MCH 31.8 MCHC 33.2 RDW 13.9 Plt Count 215 Neut % (Auto) 90.9 H Lymph % (Auto) 6.4 L [place] % (Auto) 2.4 L Eos % (Auto) 0.0 L Baso % (Auto) 0.3 Neut # (Auto) 91123 H Lymph # (Auto) 900 L [place] # (Auto) 300 Eos # (Auto) 0 Baso # (Auto) 0 ESR Sodium 143 Potassium 4.1 Chloride 112 H Carbon Dioxide 23 BUN 14 Creatinine 0.81 Estimated GFR > 60.0 BUN/Creatinine Ratio 17.3 Glucose 156 H D Hemoglobin A1c Lactate 2.1 Calcium 8.3 L Magnesium 2.1 Total Bilirubin 0.3 AST 26 ALT 19 Alkaline Phosphatase 82 D C-Reactive Protein Total Protein 6.8 Albumin 3.8 Globulin 3.0 Albumin/Globulin Ratio 1.3 Procalcitonin Urine Color Urine Appearance Urine pH Ur Specific Accident Urine Protein Urine Glucose (UA) Urine Ketones Urine Occult Blood Urine Nitrate Urine Bilirubin Urine Urobilinogen Ur Leukocyte Esterase Urine RBC Urine WBC Ur Squamous Epith Cells Urine Bacteria Hyaline Casts Urine Mucus Ur Culture Indicated? Ketones 08/08/19 08/08/19 03:45 04:00 WBC RBC Hgb Hct MCV MCH MCHC RDW Plt Count Neut % (Auto) Lymph % (Auto) [place] % (Auto) Eos % (Auto) Baso % (Auto) Neut # (Auto) Lymph # (Auto) [place] # (Auto) Eos # (Auto) Baso # (Auto) ESR Sodium Potassium Chloride Carbon Dioxide BUN Creatinine Estimated GFR BUN/Creatinine Ratio Glucose Hemoglobin A1c 5.4 Lactate Calcium Magnesium Total Bilirubin AST ALT Alkaline Phosphatase C-Reactive Protein Total Protein Albumin Globulin Albumin/Globulin Ratio Procalcitonin Urine Color Urine Appearance Urine pH Ur Specific Accident Urine Protein Urine Glucose (UA) Urine Ketones Urine Occult Blood Urine Nitrate Urine Bilirubin Urine Urobilinogen Ur Leukocyte Esterase Urine RBC Urine WBC Ur Squamous Epith Cells Urine Bacteria Hyaline Casts Urine Mucus Ur Culture Indicated? Ketones 0.06 Discharge Plan Discharge Plan Patient Disposition: Home Discharge comment: Follow up with your primary doctor next week - Dr. Arie Padilla Discharge orders & Medications Prescriptions: Continued esomeprazole magnesium [Nexium] 40 MG capsule,delayed release(DR/EC) 40 mg PO QDAY Qty: 30 RF: 0 ibuprofen 800 MG tablet 800 mg PO QDAY Qty: 30 RF: 3 mirtazapine [Remeron] 30 MG tablet 30 mg PO HS Qty: 30 RF: 12 risperidone [Risperdal] 1 MG tablet 1 mg PO BID Qty: 60 RF: 6 Follow up/Referrals: Arie Padilla [Non-Staff] - Diet/Activity/Treatments Diet: Diet as Tolerated Discharge Data Attending Provider: Val Silva Admit Date/Time: 08/08/19 03:50 Quality VTE Deep Vein Thrombosis/Pulmonary Embolism Present on Admission: No
[2019-08-08] MEDS: ACETAMINOPHEN 325 MG TABLET 650 MG PO (20:02)
[2019-08-08 21:19] LABS: Lactate (Lactic Acid) 4.8 mmol/L (0.7-2.1)
[2019-08-09] MEDS: ONDANSETRON 4 MG/2 ML INJ IV ×3 (00:53→16:05)
[2019-08-09] MEDS: METOCLOPRAMIDE 10 MG/2 ML INJ IV ×2 (02:18→18:28)
[2019-08-09 06:00] VITALS: TEMP 36.7
[2019-08-09] MEDS: SODIUM CHLORIDE 0.9% 1,000 ML 100 ML IV ×2 (06:01→16:14)
[2019-08-09 06:56] LABS: Add Manual Diff / Slide Review NO; Basophils Absolute Auto 100 /uL (0-100); Basophils Percent Auto 0.4 % (0-2); Eosinophils Absolute Auto 0 /uL (0-450); Hemoglobin 13.4 g/dL (12.0-16.0); Lymphocytes Absolute Auto 800 /uL (1100-4500); Mean Corpuscular HGB Conc 32.6 % (30-36); Mean Corpuscular Hemoglobin 31.4 PG (26-34); Mean Corpuscular Volume 96.5 fL (80-100); Monocytes Absolute Auto 500 /uL (0-900); Monocytes Percent Auto 3.3 % (3-14); Neutrophils Absolute Auto 14400 /uL (1500-7000); Neutrophils Percent Auto 91.3 % (50-75); Platelet Count 259 X10^3/uL (150-400); Red Blood Cell Count 4.25 X10^6/uL (4.0-5.2); Red Cell Distribution Width 13.4 % (11.6-14.8); White Blood Cell Count 15.8 X10^3/uL (4.5-11.0)
[2019-08-09 07:00] LABS: BUN Creatinine Ratio 13.9 (6-22); Blood Urea Nitrogen 10 mg/dL (7-17); Calcium 8.8 mg/dL (8.4-10.2); Carbon Dioxide 23 mmol/L (22-32); Chloride 108 mmol/L (98-107); Estimated Glomerular Filt Rate > 60.0 mL/min (>60); Glucose 155 mg/dL (70-100); HEMOLYSIS < 15 (0-50); Potassium 3.6 mmol/L (3.4-5.1); Sodium 141 mmol/L (137-145)
[2019-08-09] MEDS: ENOXAPARIN 40 MG/0.4 ML SYRINGE SUBCUT (09:49)
--- NOTE | 2019-08-09 11:09 | CM.DPC ---
DCP Cont: Per MD and RN during bedside rounds, pt continues to have vomiting and nausea and had 6 episodes of vomiting overnight with significant output and some vomiting this morning. Pt was requesting hot shower yesterday and middle of the night. Per MD, due to pt's regular THC use cause of nausea/vomiting likely due to Cannabinoid hyperemesis syndrome. MD ordered topical medication to help with pt's symptoms and likely d/c home tomorrow if stable. Since pt has not been able to tolerate food intake, no bm for a couple days and last one documented on 08/06/19. Plan: SW to follow for likely pt d/c home with family tomorrow if medically stable. No current d/c planning needs pending pt's interest in abstaining from THC and if she feels resources are needed once she is feeling better and not as nauseous. ANITA Kraft
[2019-08-09 12:00] VITALS: BP 124/83; PULSE 62; RESP 15; TEMP 36.1; O2SAT 97
[2019-08-09] MEDS: CAPSAICIN 30 APPLIC/TUBE CREAM..G. TOP (13:44)
--- NOTE | 2019-08-09 14:19 | PM.PN.1 ---
Subjective Subjective Date Patient Seen: 08/09/19 Interval history: Patient is 54-year-old female admitted with history of schizophrenia, Crohn's disease, cyclic vomiting and history of cannabis use. Discharge was canceled due to persistent symptoms. She threw up 6 times last night. She had temp lastly of 101.8? temporal but oral temp was 99.3? so unclear whether this was a true fever. Exam Vital Signs (past 8 hours): - 08/09/19 12:00 Temperature 97.0 F L Pulse Rate 62 Respiratory Rate 15 Blood Pressure 124/83 Pulse Oximetry 97 Oxygen Delivery Method Room Air Oxygen Flow Rate 0 Narrative Exam Narrative: General: Sleepy female who is not interested in interacting, otherwise NAD Lungs: Clear to auscultation Heart: Regular rhythm Abdomen: Epigastric tenderness which patient states is chronic Extremities: No edema Affect: Withdrawal Objective Labs Result Diagrams: 08/09/19 06:30 08/09/19 06:30 Labs: Laboratory Results - last 24 hr 08/07/19 08/09/19 08/09/19 18:00 06:30 06:30 WBC 15.8 H RBC 4.25 Hgb 13.4 Hct 41.0 MCV 96.5 MCH 31.4 MCHC 32.6 RDW 13.4 Plt Count 259 Neut % (Auto) 91.3 H Lymph % (Auto) 5.0 L [place] % (Auto) 3.3 Eos % (Auto) 0.0 L Baso % (Auto) 0.4 Neut # (Auto) 56330 H Lymph # (Auto) 800 L [place] # (Auto) 500 Eos # (Auto) 0 Baso # (Auto) 100 Sodium 141 Potassium 3.6 Chloride 108 H Carbon Dioxide 23 BUN 10 Creatinine 0.72 Estimated GFR > 60.0 BUN/Creatinine Ratio 13.9 Glucose 155 H Lactate 4.8 H* Calcium 8.8 Assessment & Plan Assessment & Plan narrative: 1. Cannabis hyperemesis syndrome, present on admission, active -patient presents with classic cyclic vomiting, needing to take hot showers or baths, and history of chronic cannabis use -abdomen and pelvic CT showed distal ileal thickening consistent with her disease of Crohn's but she has no strictures or obstruction -capsaicin 4 times daily can be helpful for symptom control, but patient did not tolerate due to severe burning discomfort and a localized rash -continue supportive treatment with IV fluids, scheduled Zofran, Reglan as needed and Phenergan suppository as needed -urinalysis microscopic culture not indicated -diet is tolerated 2. Dehydration, present on admission, active -patient severely hemoconcentrated with hemoglobin 16.6 on admission, improved to 13.4 with IV hydration -continue IV fluids until tolerating p.o. 3. Chronic leukocytosis, present on admission, active -patient has leukocytosis dating to 2017, unclear if associated with acute exacerbations of cyclic vomiting -monitor as outpatient 4. Schizophrenia, mood disorder, present on admission, active -continue home routine of mirtazapine and risperidone Quality VTE Deep Vein Thrombosis/Pulmonary Embolism Present on Admission: No
--- NOTE | 2019-08-09 14:29 | PC.NURSE ---
Day Shift- At 1420, Pt reported burning to abd after Capsaicin dose administered at 1345 to abd. Abd was blotching red. Pt quite distressed from this, wanting the cream taken off. Washed abd with soap, water and pat dry, Redness noted to upper thighs as they way pt was lying/sitting, her abd would touch her upper thighs. Spoke with Dr. Finch at 1430 and reports pts symptoms. Dr Finch to discontinue ointment.TALENT DIRECTOR reported pt has vomited at least 2 times, this RN was witness to 1 episode. Emesis approx 50-100mls at a time. When asked pt how many times she had emesis episodes, pt unable to recall. Pt up ad jarret, indep in room with steady gait upon observation. Did not have breakfast or lunch, had a few bites of saltine cracker and water. Did not want prn Reglan throughout shift or scheduled Zofran, explaining this might aid in helping her nausea, and pt stated most times she does not have ansuea until right before she vomits. States feeling tired, is diaphoretic at times. Resting in bed with eyes closed for most of shift. Refused AM vital signs, able to take around 1200 by TALENT DIRECTOR, refused housekeeper home throughout shift, wanted to be left alone.
[2019-08-09 16:15] VITALS: BP 180/84; PULSE 80; RESP 16; TEMP 37.3; O2SAT 94
--- NOTE | 2019-08-09 18:05 | PC.NURSE ---
Addendum entered by Prerna Benson R.N. 08/09/19 21:39: Pt had shower this evening, states she feels alot better. Nausea has seemed to settle at this time. IVF continue as per orders. HS CBG = 106, no coverage required. Call light w/in reach, pt calls appropriately or needs. Continue w/plan of care. Addendum entered by Prerna Benson R.N. 08/09/19 18:37: Med at 1830 w/reglan for nausea, had 200cc emesis Original Note: Pt resting at intervals Continues w/nausea, med w/zofran w/minimal relief. Lungs clear/diminished at bases. SpO2 96% RA IVF of NS infusing @ 100cc/hr via pump into the RFA w/o incidence. Up independently in room. Call light w/in reach, pt calls appropriately for needs.
[2019-08-09 19:36] VITALS: BP 152/90; PULSE 76; RESP 18; TEMP 37.5; O2SAT 98
[2019-08-09 23:00] VITALS: O2SAT 97
[2019-08-09 23:30] VITALS: BP 140/89; PULSE 63; RESP 19; TEMP 37.3; O2SAT 97
[2019-08-10] MEDS: ONDANSETRON 4 MG/2 ML INJ IV ×4 (00:35→23:44)
[2019-08-10] MEDS: METOCLOPRAMIDE 10 MG/2 ML INJ IV ×3 (01:42→22:02)
[2019-08-10] MEDS: SODIUM CHLORIDE 0.9% 1,000 ML 100 ML IV ×2 (02:15→14:11)
--- NOTE | 2019-08-10 06:44 | PC.NURSE ---
Addendum entered by Cha Jimenez R.N. 08/10/19 07:01: correction: Pt also vomitted another 250cc bile in the morning Original Note: Patient had a better night than compared to the previous one. She did not nearly do as much retching/nausea/vomitting than the other night. Tonight she vomitted twice. Once 300cc, then few hours later 50cc. Reglan appears to help her nausea more than the Zofran. NS@100mL/hr
[2019-08-10 07:25] VITALS: BP 147/92; PULSE 71; RESP 16; TEMP 37.1; O2SAT 99
[2019-08-10 09:00] VITALS: O2SAT 99
[2019-08-10 09:05] VITALS: TEMP 36.6
[2019-08-10] MEDS: ENOXAPARIN 40 MG/0.4 ML SYRINGE SUBCUT (09:10)
[2019-08-10] MEDS: SODIUM CHLORIDE 0.9% FLUSH 10 ML IV ×2 (09:11→14:12)
--- NOTE | 2019-08-10 13:52 | CM.DPC ---
DCP continued: EMR reviewed: CM/RN stopped in to check on patient. She is still struggling with nausea and vomiting. Once patient is medically stable and not vomiting any longer patient will be D/C home with family. MAYA/Rn checked in with patient and she agreed with plan. Lynne Mejia RN
--- NOTE | 2019-08-10 14:17 | PC.NURSE ---
Day Shift- Pt vomited approx 4 times for a total of approx 350 mls. Pt does not recall the amount of times she has vomited. Reglan IV X1, scheduled Zofran X1. IVF infusing well to right FA PIV. Pt had water throughout shift and gingerale. Tried apple juice and chicken broth, had a few sips and stated she had vomited which was approx 25mls. Pt did not want Phenergan PRN NV when offered. OOB indep with steady gait, voiding qs, no BM for several days, passing little flatus. BSX4 are hypoactive. Pt had a shower in AM indep with shower set up.
[2019-08-10 15:55] VITALS: BP 147/105; PULSE 84; RESP 18; TEMP 36.6; O2SAT 97
--- NOTE | 2019-08-10 16:14 | PM.PN.1 ---
Subjective Subjective Date Patient Seen: 08/10/19 Interval history: Patient is 54-year-old female admitted with history of schizophrenia, Crohn's disease, cyclic vomiting and history of cannabis use. Patient has persistent nausea and vomiting with multiple episodes last night and today. Vomitus consists of bilious and gastric fluid. Exam Vital Signs (past 8 hours): - 08/10/19 09:00 08/10/19 09:05 08/10/19 15:55 Temperature 97.8 F 97.8 F Pulse Rate 84 Respiratory Rate 18 Blood Pressure 147/105 H Pulse Oximetry 99 97 Oxygen Delivery Method Room Air Oxygen Flow Rate 0 Narrative Exam Narrative: General: Sleepy female who is not interested in interacting, otherwise NAD Lungs: Clear to auscultation Heart: Regular rhythm Abdomen: Epigastric tenderness which patient states is chronic Extremities: No edema Affect: Slightly withdrawn Objective Labs Result Diagrams: 08/09/19 06:30 08/09/19 06:30 Assessment & Plan Assessment & Plan narrative: 1. Cannabis hyperemesis syndrome, present on admission, active -continued symptomatic with nausea and vomiting and unable to keep down adequate oral intake -patient presents with classic cyclic vomiting, needing to take hot showers or baths, and history of chronic cannabis use -abdomen and pelvic CT showed distal ileal thickening consistent with her disease of Crohn's but she has no strictures or obstruction -capsaicin 4 times daily can be helpful for symptom control, but patient did not tolerate due to severe burning discomfort and a localized rash -continue supportive treatment with IV fluids, scheduled Zofran, Reglan as needed and Phenergan suppository as needed -urinalysis microscopic culture not indicated -diet as tolerated -check electrolytes in a.m. 2. Dehydration, present on admission, active -patient severely hemoconcentrated with hemoglobin 16.6 on admission, improved to 13.4 with IV hydration -continue IV fluids until tolerating p.o. 3. Chronic leukocytosis, present on admission, active -patient has leukocytosis dating to 2017, unclear if associated with acute exacerbations of cyclic vomiting -monitor as outpatient 4. Schizophrenia, mood disorder, present on admission, active -continue home routine of mirtazapine and risperidone 5. Hyperglycemia, without diagnosis of diabetes, present on admission -a.m. Glucose 150s, hemoglobin A1c 5.4 -continue to monitor Quality VTE Deep Vein Thrombosis/Pulmonary Embolism Present on Admission: No
[2019-08-10 17:00] VITALS: O2SAT 96
[2019-08-10] MEDS: PROMETHAZINE 12.5 MG SUPP PR (18:28)
--- NOTE | 2019-08-10 18:43 | PC.NURSE ---
Addendum entered by Prerna Benson R.N. 08/10/19 21:45: Pt appeared to have a period of rest/sleep. States that the phenergan made it worse Denies any requests at this time. IVF continue as per orders HS CBG = 79 given juice Continues to have emesis Call light w/in reach, call appropriately for needs. Continue w/plan of care. Original Note: Pt trying to rest, continues to have emesis, totalling 600cc thus far. Pt agreed to phenergan suppository, given @ 1830 Lungs clear/diminished, SpO2 96% RA IVF of NS infusing via pump @ 100cc/hr into RFA w/o incidence. Will assess nausea/vomiting. Call light w/in reach, pt calls appropriately for needs.
[2019-08-10 23:00] VITALS: BP 145/95; PULSE 79; RESP 18; TEMP 37.1; O2SAT 97
[2019-08-11] VITALS: O2SAT 97
[2019-08-11] MEDS: PANTOPRAZOLE 40 MG VIAL IV ×2 (01:45→10:08)
--- NOTE | 2019-08-11 01:54 | PC.NURSE ---
Pt. continues with nausea & vomiting, even after the Zofran IVP. Significant other called & informed that last time the pt. was admitted she received PPI. Noted that she takes Nexium @ home. Dr. Wilson notified orders received Protonix 40 mg. IV every 24 hrs. First dose was admin. @ 0145 & also ordered Lorazepam 0.5 mg. IVP every 6 hrs. PRN. Vomited 100 cc of greenish emesis. Will cont. POc & monitor.
[2019-08-11] MEDS: SODIUM CHLORIDE 0.9% 1,000 ML 100 ML IV ×3 (02:26→20:37)
[2019-08-11] MEDS: LORazepam 2 MG/ML INJ 0.5 MG IV (02:42)
--- NOTE | 2019-08-11 03:38 | PC.NURSE ---
0242 Pt. still C/O nausea after the Protonix was admin. Requested Lorazepam 0.50 mg. admin. Pt. sleeping now, will monitor.
--- NOTE | 2019-08-11 05:30 | PC.NURSE ---
Pt. was able to sleep after medicated with Protonix & Lorazepam. Declined Zofran 0600 dose, denies any nausea. Will monitor.
[2019-08-11 08:29] VITALS: BP 140/98; PULSE 84; RESP 17; TEMP 37.4; O2SAT 96
[2019-08-11 09:20] LABS: Add Manual Diff / Slide Review NO; Basophils Absolute Auto 100 /uL (0-100); Basophils Percent Auto 0.7 % (0-2); Eosinophils Absolute Auto 0 /uL (0-450); Hematocrit 45.9 % (36-46); Hemoglobin 15.6 g/dL (12.0-16.0); Lymphocytes Absolute Auto 1700 /uL (1100-4500); Lymphocytes Percent Auto 13.7 % (25-40); Monocytes Absolute Auto 1200 /uL (0-900); Monocytes Percent Auto 9.3 % (3-14); Neutrophils Absolute Auto 9400 /uL (1500-7000); Neutrophils Percent Auto 76.3 % (50-75); Platelet Count 281 X10^3/uL (150-400); Red Blood Cell Count 4.88 X10^6/uL (4.0-5.2); Red Cell Distribution Width 13.2 % (11.6-14.8); White Blood Cell Count 12.4 X10^3/uL (4.5-11.0)
[2019-08-11 09:31] LABS: BUN Creatinine Ratio 16.9 (6-22); Blood Urea Nitrogen 12 mg/dL (7-17); Carbon Dioxide 28 mmol/L (22-32); Chloride 100 mmol/L (98-107); Estimated Glomerular Filt Rate > 60.0 mL/min (>60); Glucose 115 mg/dL (70-100); HEMOLYSIS < 15 (0-50); Magnesium 2.4 mg/dL (1.6-2.3); Potassium 2.8 mmol/L (3.4-5.1); Sodium 140 mmol/L (137-145)
[2019-08-11] MEDS: ENOXAPARIN 40 MG/0.4 ML SYRINGE SUBCUT (10:08)
[2019-08-11] MEDS: SODIUM CHLORIDE 0.9% FLUSH 10 ML IV (10:09)
[2019-08-11] MEDS: METOCLOPRAMIDE 10 MG/2 ML INJ IV ×2 (10:19→18:54)
[2019-08-11] MEDS: POTASSIUM CHLORIDE 60 MEQ in SODIUM CHLORIDE 0.9% 500 ML 88.333 ML IV (10:23)
[2019-08-11 10:29] VITALS: O2SAT 96
--- NOTE | 2019-08-11 10:31 | PC.NURSE ---
Patient alert, oriented had 150cc emesis in toilet, given 10mg IVP Reglan. IVF continue, James helton as ordered.
--- NOTE | 2019-08-11 13:58 | PM.DS.1 ---
History of Present Illness History of Present Illness Date Patient Seen: 08/08/19 Chief complaint: FEVER, VOMITING Narrative: Written by Val BEE: Kasie Isabel is a 54-year-old female with a history of schizophrenia who sees a ?Dr. Sargent on [facility] in [place] ?. She presented to the ED today with subjective fever and vomiting. She has a very difficult historian, initially she was very uncooperative with staff and their assessment of her. She initially refused to allow for lab draws or provide a urine for a urinalysis. Patient states that she does not currently take any medications and that the only chronic health problem she has is schizophrenia. When informed of her blood sugars I asked if she had anybody in her family that had diabetes and she answered ?my old man does?. Patient was asked to be admitted due to an elevated white count of 15 and a lactic acidosis of 4.8 on admission which then dropped to 2.4 after the patient had been given 2 L of normal saline. In the ED they gave her Zosyn 4.5 mg and vancomycin IV. Patient states that she was feeling hot though they told her she was ?cold?. She states she has abdominal cramps and has been throwing up over the past day. She was taking care of her grandson who throughout the day before. She does endorse urinating a lot over the past year, has a diagnosis of schizophrenia and does not regularly follow up with her PCP. She denies any shortness of breath, chest pain, diarrhea or constipation, numbing or tingling of her upper lower extremities. Discharge Providers Provider Date of admission: 08/10/19 16:50 Discharge Date: 08/11/19 Discharge provider: Diya Keys DO Summary Hospital Course Hospital Course: Kasie Isabel is a 54-year-old female with a past medical history significant for schizophrenia who presented to the ED with intractable nausea and vomiting. 1. Acute intractable nausea and vomiting, present on admission. Resolving. -Patient presented with classic hyperemesis cannabis with chronic daily cannabis use and improvement in symptoms with hot showers or baths. -Differential diagnosis includes: Hyperemesis cannabis versus viral gastroenteritis versus untreated Crohn's disease. UTI ruled out. Of note, patient carries diagnosis of Crohn's disease, however, patient unaware of this diagnosis. Patient has no family history of IBD or colon cancer. Patient has had several episodes of cyclic vomiting. -CT abdomen and pelvis with contrast demonstrated mild thickening and stranding of the terminal ileum consistent with possible Crohn's disease. No strictures or obstruction. -Attempted capsaicin 4 times daily for symptom control, but patient did not tolerate this treatment due to severe burning and a localized rash. -Continued supportive treatment with IV fluid hydration and antiemetics with Zofran, Reglan as needed and Phenergan suppository as needed -Continued to slowly advance diet as tolerated. Patient currently tolerating liquid and soft diet. 2. Acute dehydration, present on admission. Resolved. -Patient presented severely hemoconcentrated with hemoglobin 16.6 on admission which improved with IV fluid hydration. -continued IV fluids until adequately hydrated then discontinued. 3. Chronic leukocytosis, present on admission, active -Patient has leukocytosis dating to 2017 and unclear if leukocytosis is associated with acute exacerbations of cyclic vomiting versus possible underlying untreated Crohn's disease. 4. Schizophrenia, present on admission. Stable. -Continued home mirtazapine 30 mg daily at bedtime and risperidone 1 mg twice daily. 5. Hyperglycemia, present on admission. Resolved. -Hemoglobin A1c normal at 5.4%. Exam Vital Signs (past 8 hours): - 08/11/19 08:29 08/11/19 10:29 Temperature 99.4 F Pulse Rate 84 Respiratory Rate 17 Blood Pressure 140/98 H Pulse Oximetry 96 96 Oxygen Delivery Method Room Air Oxygen Flow Rate 0 Narrative Exam Narrative: General: Middle-aged female sitting in bed and in no acute distress, well-developed, well-nourished, withdrawn with depressed mood but otherwise appropriately interactive. HEENT: Normocephalic, atraumatic. External ears without defect. Pupils equal, round, and reactive to light and accommodation. Anicteric sclerae, moist conjunctivae, and no lid lag. Large vertical scar on chin. Oropharynx free of erythema and cobble stoning with moist mucosa. Neck: Supple with full range of motion. No lymphadenopathy or thyromegaly. Cardiovascular: Regular rate and rhythm without murmurs, rubs, or gallops appreciated. Pulmonary: Clear to auscultation bilaterally without crackles, wheezes, or rhonchi. Normal respiratory effort with no use of accessory muscles. Abdomen: Soft, bowel sounds present, mild tenderness to palpation in left lower quadrant, nondistended. No hepatosplenomegaly or masses appreciated. Extremities: No clubbing, cyanosis, or edema. Skin: Normal temperature, turgor, and texture; no rash, ulcers, or subcutaneous nodules appreciated. Neurological: Cranial nerves grossly intact. Psychiatric: Withdrawn, depressed mood and flat affect. Alert and oriented to person, place, and time. Objective Labs Result Diagrams: 08/12/19 08:35 08/12/19 08:35 Labs: Laboratory Results - last 24 hr 08/11/19 08/11/19 09:11 09:11 WBC 12.4 H RBC 4.88 Hgb 15.6 Hct 45.9 MCV 94.0 MCH 32.0 MCHC 34.0 RDW 13.2 Plt Count 281 Neut % (Auto) 76.3 H Lymph % (Auto) 13.7 L [place] % (Auto) 9.3 Eos % (Auto) 0.0 L Baso % (Auto) 0.7 Neut # (Auto) 9400 H Lymph # (Auto) 1700 [place] # (Auto) 1200 H Eos # (Auto) 0 Baso # (Auto) 100 Sodium 140 Potassium 2.8 L Chloride 100 Carbon Dioxide 28 BUN 12 Creatinine 0.71 Estimated GFR > 60.0 BUN/Creatinine Ratio 16.9 Glucose 115 H Calcium 9.0 Magnesium 2.4 H Discharge Plan Discharge Plan Patient Disposition: [facility] Discharge comment: You are being discharged home. It is unclear what is causing your cyclic vomiting syndrome and whether it is a viral gastroenteritis versus hyperemesis cannabis versus Crohn's disease. Please follow-up with your primary care physician in the next 1 week regarding your hospitalization and for referral to GI. I highly recommend colonoscopy to screen for colon cancer, as well as, to evaluate for Crohn's disease. Please continue to slowly advance your diet as tolerated and try to stay well hydrated. Please stop using marijuana indefinitely and recommend avoiding NSAIDs such as ibuprofen, etc as these can be abrasive to the GI tract in cause inflammation such as gastritis and ulcerations which may provoke nausea and vomiting. You prescribed Zofran 4 mg every 8 hours as needed for severe nausea. Discharge orders & Medications Follow up/Referrals: Arie Padilla [Non-Staff] - 1 Week Diet/Activity/Treatments Diet: Diet as Tolerated Activity: Activity as tolerated Visit Report/Discharge Packet Instructions: DI for Crohn's Disease, Craig Diet, DI for Viral Gastroenteritis -- Adult, Ondansetron, DI for Cannabinoid Hyperemesis Syndrome Visit Report Forms: Patient Portal/API, Stroke Signs & Symptoms Quality VTE Deep Vein Thrombosis/Pulmonary Embolism Present on Admission: No
[2019-08-11 16:00] VITALS: BP 134/100; PULSE 77; RESP 16; TEMP 36.3; O2SAT 97
[2019-08-11] MEDS: ONDANSETRON 4 MG/2 ML INJ IV (16:59)
[2019-08-11 18:48] VITALS: O2SAT 97
[2019-08-11 18:52] VITALS: BP 149/103; PULSE 77; RESP 16; TEMP 36.9
--- NOTE | 2019-08-11 19:07 | PC.NURSE ---
Addendum entered by Concepcion Madrid R.N. 08/11/19 23:30: Patient with more emesis tonight, told me she did not feel well enough to DC from hospital and said I don't even have a ride. Since 2099 meds given, patient has mostly been sleeping. I notified Dr Wilson of patient status and told him that she did not feel ready to DC from hospital. Original Note: Evening note: Kasie has vomited four times since 1644. IV Zofran & IV Reglan given. She said I can't hold anything down. I notified Dr Keys of patient's emesis, no change in orders. Patient now sipping on rinking water & pepsi, eating popsicle now. Patient said I can't go home like this--my boyfriend will not come and get me until I stop throwing up- he is taking care of a 4 year old. IV K+ rider almost done infusing. BP elevated. Other VS stable. Pt reporting numbness of arm after laying on right side. I asked her to try laying on left side to see if position change relieves numbness. She told me she had rash on right leg, I observed small area of excoriated rash to right lateral knee. I applied thin layer of Vaseline to this site, I found no barrier creme in stock.
[2019-08-11] MEDS: MIRTAZAPINE 15 MG TABLET 30 MG PO (20:45)
[2019-08-12] VITALS (9 sets, daily range): BP systolic 118–174; BP diastolic 61–103; PULSE 76–89; RESP 16–19; TEMP 36.8–37.6; O2SAT 95–97
[2019-08-12] MEDS: ONDANSETRON 4 MG/2 ML INJ IV ×3 (00:34→14:17)
--- NOTE | 2019-08-12 08:00 | PC.NURSE ---
Addendum entered by Helen Grady R.N. 08/12/19 11:00: Patient seen by Dr Britt, steroids given as ordered, 10mg reglan given, patients diet changed to clear liquids. Addendum entered by Helen Grady R.N. 08/12/19 09:09: Patient up to the bathroom had unmeasured amount of emesis in toilet. Addendum entered by Helen Grady R.N. 08/12/19 08:13: Spoke with Dr Keys, will have genral surgery see her, patient informed, discharge on hold. Original Note: Patient alert, oriented, has had no emesis per NOC RN, patient confirms no emesis overnight and states that's because I haven't drank anything. Patient agreeable to discharge this am, boyfriend Matthew called and will come to pick patient up.
[2019-08-12 09:12] LABS: Add Manual Diff / Slide Review NO; BUN Creatinine Ratio 18.4 (6-22); Basophils Absolute Auto 100 /uL (0-100); Basophils Percent Auto 0.6 % (0-2); Blood Urea Nitrogen 14 mg/dL (7-17); Carbon Dioxide 23 mmol/L (22-32); Chloride 101 mmol/L (98-107); Eosinophils Absolute Auto 0 /uL (0-450); Eosinophils Percent Auto 0.1 % (2-4); Estimated Glomerular Filt Rate > 60.0 mL/min (>60); Glucose 99 mg/dL (70-100); HEMOLYSIS < 15 (0-50); Hematocrit 46.1 % (36-46); Hemoglobin 15.5 g/dL (12.0-16.0); Lymphocytes Absolute Auto 2100 /uL (1100-4500); Lymphocytes Percent Auto 17.6 % (25-40); Magnesium 2.2 mg/dL (1.6-2.3); Mean Corpuscular HGB Conc 33.6 % (30-36); Mean Corpuscular Volume 95.2 fL (80-100); Monocytes Absolute Auto 1300 /uL (0-900); Monocytes Percent Auto 10.5 % (3-14); Neutrophils Absolute Auto 8700 /uL (1500-7000); Neutrophils Percent Auto 71.2 % (50-75); Platelet Count 295 X10^3/uL (150-400); Potassium 2.9 mmol/L (3.4-5.1); Red Blood Cell Count 4.84 X10^6/uL (4.0-5.2); Sodium 140 mmol/L (137-145); White Blood Cell Count 12.2 X10^3/uL (4.5-11.0)
--- NOTE | 2019-08-12 09:15 | CM.DPC ---
DCP continued: Reviewed chart. Patient with d/c order dated 08-11-19. Met with patient explained role. Patient reports that she still has nausea/vomiting. Patient reports that she was told surgery consult pending. BOSOM PRESSER checked with RN/Marya and she confirms that patient has surgery consult pending. Will discuss with Dr. Keys in AM rounds. D/C order will need to be cancelled. P: Anticipate patient will return home when medically stable. ANITA Roca
--- NOTE | 2019-08-12 09:47 | P.CONS_ITS ---
History of Present Illness Consult details Date Patient Seen: 08/12/19 Time Patient Seen: 09:48 Chief complaint: FEVER, VOMITING Narrative: Kasie is a 54-year-old woman who is admitted to the hospital with abdominal pain nausea and likely Crohn's flare. She present to the hospital 08/07 with complaint epigastric pain nausea vomiting. She has been managed in the hospital for the past 4 days with IV fluids anti medics with no significant improvement. I reviewed her CT abdomen pelvis which demonstrates terminal ileitis, no bowel obstruction. She carries a diagnosis of Crohn's disease on her chart but in discussion with the patient she has never had a previous endoscopy or colonoscopy no prior treatment for Crohn's disease and she is not unsure as to where this diagnosis came. However she does have bipolar and schizophrenia and she is unsure of her medical history. Meds Home Medications and Allergies Home Medications Medication Instructions Recorded Confirmed Type esomeprazole magnesium [Nexium] 40 mg PO QDAY #30 cap 03/18/17 08/09/19 Rx mirtazapine [Remeron] 30 mg PO HS #30 tab 09/03/17 08/09/19 Rx risperidone [Risperdal] 1 mg PO BID #60 tab 09/03/17 08/09/19 Rx ondansetron 4 mg PO Q8H PRN #10 tab 08/11/19 Rx Allergies Allergy/AdvReac Type Severity Reaction Status Date / Time cephalexin AdvReac Unknown PANIC Verified 08/07/19 18:03 ATTACK Review of Systems Review of Systems Narrative: A 10 point review of systems is negative except as noted in the HPI Exam Vital Signs (past 8 hours): - 08/12/19 08:00 08/12/19 09:09 Temperature 99.5 F Pulse Rate 88 Respiratory Rate 17 Blood Pressure 140/93 H Pulse Oximetry 97 97 Oxygen Delivery Method Room Air Oxygen Flow Rate 0 Narrative Exam Narrative: General-no acute distress, well nourished HEENT-moist mucous membranes, no scleral icterus Neck-supple, no lymphadenopathy Chest- non labored respirations, clear to auscultation bilaterally Cardiac-regular rate no peripheral edema Abdomen-soft, mildly tender epigastric and right lower quadrant no peritonitis Extremities-warm, well perfused Neurological-alert and oriented, no focal deficits Objective Labs Result Diagrams: 08/12/19 08:35 03/24/20 08:35 Labs: Laboratory Results - last 24 hr 08/12/19 08/12/19 08:35 08:35 WBC 12.2 H RBC 4.84 Hgb 15.5 Hct 46.1 H MCV 95.2 MCH 32.0 MCHC 33.6 RDW 13.0 Plt Count 295 Neut % (Auto) 71.2 Lymph % (Auto) 17.6 L [place] % (Auto) 10.5 Eos % (Auto) 0.1 L Baso % (Auto) 0.6 Neut # (Auto) 8700 H Lymph # (Auto) 2100 [place] # (Auto) 1300 H Eos # (Auto) 0 Baso # (Auto) 100 Sodium 140 Potassium 2.9 L Chloride 101 Carbon Dioxide 23 BUN 14 Creatinine 0.76 Estimated GFR > 60.0 BUN/Creatinine Ratio 18.4 Glucose 99 Calcium 9.0 Magnesium 2.2 Assessment & Plan Assessment and plan (1) Crohn's disease involving terminal ileum: Problem details: Kasie is a 54-year-old woman admitted to the hospital with a Crohn's flare. She is a challenging patient as she has schizophrenia and is unsure as to majority of her medical history. However she has epigastric pain and her CT demonstrates terminal ileitis and there is some documentation that she may have a prior history of Crohn's disease. I think this most likely represents an acute flare of likely Crohn's disease. She is unable to tolerate much p.o. and continues have frequent emesis currently. I recommend that we begin treatment with methylprednisolone at 60 mg daily. One she tolerates p.o. with this can be transitioned to prednisone 40 mg daily for a total of 1 week. She can then taper by 10 mg weekly. In addition I recommend that she establish an outpatient assistant merchandise manager for her long-term management. Current visit: Yes Status: Acute
[2019-08-12] MEDS: methylPREDNISolone 125 MG/2 ML VIAL 60 MG IV (10:04)
[2019-08-12] MEDS: ENOXAPARIN 40 MG/0.4 ML SYRINGE SUBCUT (10:04)
[2019-08-12] MEDS: SODIUM CHLORIDE 0.9% FLUSH 10 ML IV ×3 (10:05→21:30)
[2019-08-12] MEDS: DEXTROSE 5%-0.9% NS 1,000 ML 100 ML IV (10:05)
[2019-08-12] MEDS: METOCLOPRAMIDE 10 MG/2 ML INJ IV (10:05)
[2019-08-12] MEDS: PANTOPRAZOLE 40 MG VIAL IV (10:05)
[2019-08-12] MEDS: ACETAMINOPHEN 325 MG TABLET 650 MG PO (10:28)
--- NOTE | 2019-08-12 11:23 | CM.DPC ---
DCP/continued: Spoke with provider/Dr. Keys in AM rounds. She reports patient seen by surgery and put on IV steroids and liquid diet for the next 24hrs. Discharge anticipated within the next 24-48hrs. Patient will need outpatient follow up with GI and PCP. P: CM team to follow closely. Will need to check on whether or not patient has PCP prior to discharge. ANITA Roca
[2019-08-12] MEDS: POTASSIUM CHLORIDE 60 MEQ in SODIUM CHLORIDE 0.9% 500 ML 88.333 ML IV (11:28)
--- NOTE | 2019-08-12 17:17 | PM.PN.1 ---
Subjective Subjective Date Patient Seen: 08/12/19 Interval history: Kasie Isabel is a 54-year-old female with a past medical history significant for schizophrenia who presented to the ED with intractable nausea and vomiting. The patient is resting in bed comfortably. She is more withdrawn today. She has had no nausea or vomiting since yesterday evening. Consulted general surgery, Dr. Britt, for possible Crohn's disease and need for colonoscopy. Plan to place patient on IV glucocorticoid and slowly advance diet as tolerated. She has no complaints and denies headache, cough, shortness of breath, chest pain, abdominal pain, nausea, vomiting, fever, chills, dysuria, diarrhea or constipation. She is voiding without difficulty. She is up minimally but ambulating independently. Exam Vital Signs (past 8 hours): - 08/12/19 12:00 08/12/19 15:43 Temperature 99.5 F 98.3 F Pulse Rate 89 78 Respiratory Rate 19 16 Blood Pressure 151/103 H 118/61 Pulse Oximetry 95 97 Oxygen Delivery Method Room Air Oxygen Flow Rate 0 Narrative Exam Narrative: General: Middle-aged female sitting in bed and in no acute distress, well-developed, well-nourished, more withdrawn today, depressed mood, otherwise appropriately interactive. HEENT: Normocephalic, atraumatic. External ears without defect. Pupils equal, round, and reactive to light. Anicteric sclerae, moist conjunctivae, and no lid lag. Large vertical scar on chin. Oropharynx free of erythema and cobble stoning with moist mucosa. Neck: Supple with full range of motion. No lymphadenopathy or thyromegaly. Cardiovascular: Regular rate and rhythm without murmurs, rubs, or gallops appreciated. Pulmonary: Clear to auscultation bilaterally without crackles, wheezes, or rhonchi. Normal respiratory effort with no use of accessory muscles. Abdomen: Soft, bowel sounds present, tenderness to palpation in right lower quadrant resolved, non-distended. No hepatosplenomegaly or masses appreciated. Extremities: No clubbing, cyanosis, or edema. Skin: Normal temperature, turgor, and texture; no rash, ulcers, or subcutaneous nodules appreciated. Neurological: Cranial nerves grossly intact. Psychiatric: Withdrawn, depressed mood and flat affect. Alert and oriented to person, place, and time. Objective Labs Result Diagrams: 08/12/19 08:35 08/12/19 08:35 Labs: Laboratory Results - last 24 hr 08/12/19 08/12/19 08:35 08:35 WBC 12.2 H RBC 4.84 Hgb 15.5 Hct 46.1 H MCV 95.2 MCH 32.0 MCHC 33.6 RDW 13.0 Plt Count 295 Neut % (Auto) 71.2 Lymph % (Auto) 17.6 L [place] % (Auto) 10.5 Eos % (Auto) 0.1 L Baso % (Auto) 0.6 Neut # (Auto) 8700 H Lymph # (Auto) 2100 [place] # (Auto) 1300 H Eos # (Auto) 0 Baso # (Auto) 100 Sodium 140 Potassium 2.9 L Chloride 101 Carbon Dioxide 23 BUN 14 Creatinine 0.76 Estimated GFR > 60.0 BUN/Creatinine Ratio 18.4 Glucose 99 Calcium 9.0 Magnesium 2.2 Assessment & Plan Assessment & Plan narrative: Kasie Isabel is a 54-year-old female with a past medical history significant for schizophrenia who presented to the ED with intractable nausea and vomiting. 1. Acute intractable nausea and vomiting, likely secondary to Crohn's flare, present on admission. Resolving. -Patient presented with classic hyperemesis cannabis with chronic daily cannabis use and improvement in symptoms with hot showers or baths. -Likely multifactorial and secondary to Crohn's flare and possibly hyperemesis cannabis. Also viral gastroenteritis is also possible. UTI ruled out. Of note, patient carries diagnosis of Crohn's disease, however, patient unaware of this diagnosis. Patient has no family history of IBD or colon cancer. Patient has had several episodes of cyclic vomiting. -CT abdomen and pelvis with contrast demonstrated mild thickening and stranding of the terminal ileum consistent with possible Crohn's disease. No strictures or obstruction. -Attempted capsaicin 4 times daily for symptom control, but patient did not tolerate this treatment due to severe burning and a localized rash. -Continued supportive treatment with IV fluid hydration and antiemetics with Zofran, Reglan as needed and Phenergan suppository as needed -Continue to slowly advance diet as tolerated. Patient currently tolerating clears. -Consulted general surgery, Dr. Britt, for evaluation of possible Crohn's disease and need for colonoscopy. We appreciate his time in care of the patient. 2. Acute dehydration, present on admission. Resolved. -Patient presented severely hemoconcentrated with hemoglobin 16.6 on admission which improved with IV fluid hydration. -Continued IV fluids until adequately hydrated then discontinued. Continue to encourage p.o. intake of fluids. 3. Chronic leukocytosis, present on admission, active -Patient has leukocytosis dating to 2017 and unclear if leukocytosis is associated with acute exacerbations of cyclic vomiting versus possible underlying untreated Crohn's disease. 4. Schizophrenia, present on admission. Stable. -Continue home mirtazapine 30 mg daily at bedtime and risperidone 1 mg twice daily. 5. Hyperglycemia, present on admission. Resolved. -Hemoglobin A1c normal at 5.4%. Code status: Full code DVT prophylaxis: Enoxaparin Disposition: Patient likely to discharge in 1-2 days depending on improvement in symptoms and toleration of advancement of diet. Quality VTE Deep Vein Thrombosis/Pulmonary Embolism Present on Admission: No
[2019-08-12] MEDS: MIRTAZAPINE 15 MG TABLET 30 MG PO (20:27)
[2019-08-13] MEDS: ONDANSETRON 4 MG/2 ML INJ IV (05:42)
[2019-08-13 05:49] LABS: Add Manual Diff / Slide Review NO; Basophils Absolute Auto 100 /uL (0-100); Basophils Percent Auto 0.7 % (0-2); Eosinophils Absolute Auto 0 /uL (0-450); Eosinophils Percent Auto 0.1 % (2-4); Hematocrit 47.5 % (36-46); Hemoglobin 16.1 g/dL (12.0-16.0); Lymphocytes Absolute Auto 2400 /uL (1100-4500); Lymphocytes Percent Auto 16.5 % (25-40); Mean Corpuscular HGB Conc 33.9 % (30-36); Mean Corpuscular Hemoglobin 32.2 PG (26-34); Mean Corpuscular Volume 94.9 fL (80-100); Monocytes Absolute Auto 1400 /uL (0-900); Monocytes Percent Auto 9.4 % (3-14); Neutrophils Absolute Auto 10800 /uL (1500-7000); Neutrophils Percent Auto 73.3 % (50-75); Platelet Count 319 X10^3/uL (150-400); Red Blood Cell Count 5.01 X10^6/uL (4.0-5.2); Red Cell Distribution Width 13.3 % (11.6-14.8); White Blood Cell Count 14.7 X10^3/uL (4.5-11.0)
[2019-08-13 06:18] LABS: BUN Creatinine Ratio 17.9 (6-22); Blood Urea Nitrogen 14 mg/dL (7-17); Calcium 9.5 mg/dL (8.4-10.2); Carbon Dioxide 23 mmol/L (22-32); Chloride 104 mmol/L (98-107); Estimated Glomerular Filt Rate > 60.0 mL/min (>60); Glucose 111 mg/dL (70-100); HEMOLYSIS < 15 (0-50); Magnesium 2.4 mg/dL (1.6-2.3); Potassium 3.6 mmol/L (3.4-5.1); Sodium 139 mmol/L (137-145)
[2019-08-13 08:00] VITALS: BP 148/102; PULSE 80; RESP 16; TEMP 37.2; O2SAT 95
--- NOTE | 2019-08-13 08:41 | PM.DS.1 ---
History of Present Illness History of Present Illness Chief complaint: FEVER, VOMITING Narrative: Written by Val BEE: Kasie Isabel is a 54-year-old female with a history of schizophrenia who sees a ?Dr. Sargent on [facility] in [place] ?. She presented to the ED today with subjective fever and vomiting. She has a very difficult historian, initially she was very uncooperative with staff and their assessment of her. She initially refused to allow for lab draws or provide a urine for a urinalysis. Patient states that she does not currently take any medications and that the only chronic health problem she has is schizophrenia. When informed of her blood sugars I asked if she had anybody in her family that had diabetes and she answered ?my old man does?. Patient was asked to be admitted due to an elevated white count of 15 and a lactic acidosis of 4.8 on admission which then dropped to 2.4 after the patient had been given 2 L of normal saline. In the ED they gave her Zosyn 4.5 mg and vancomycin IV. Patient states that she was feeling hot though they told her she was ?cold?. She states she has abdominal cramps and has been throwing up over the past day. She was taking care of her grandson who throughout the day before. She does endorse urinating a lot over the past year, has a diagnosis of schizophrenia and does not regularly follow up with her PCP. She denies any shortness of breath, chest pain, diarrhea or constipation, numbing or tingling of her upper lower extremities. Discharge Providers Provider Date of admission: 08/10/19 16:50 Discharge Date: 08/13/19 Consults: 08/12/19 07:58 Consult to General Surgery Routine Comment: Consulting Provider: Otis Britt Reason for consultation: Intractable nausea and vomiting Has provider been notified: Yes Discharge provider: Diya Keys DO Summary Hospital Course Discharge Diagnosis: 1. Acute intractable nausea and vomiting, likely secondary to acute Crohn's flare, present on admission. Resolved. 2. Acute dehydration, present on admission. Resolved. 3. Acute hypokalemia, not present on admission. Resolved. 4. Leukocytosis, acuity unknown but possibly chronic, present on admission. Stable. 5. Schizophrenia, present on admission. Stable. 6. Hyperglycemia, present on admission. Resolved. Hospital Course: Kasie Isabel is a 54-year-old female with a past medical history significant for schizophrenia who presented to the ED with intractable nausea and vomiting. 1. Acute intractable nausea and vomiting, likely secondary to acute Crohn's flare, present on admission. Resolved. -Patient presented with classic hyperemesis cannabis with chronic daily cannabis use and improvement in symptoms with hot showers or baths. -Likely multifactorial and secondary to Crohn's flare and possibly hyperemesis cannabis. Also viral gastroenteritis is also possible. UTI ruled out. Of note, patient carries diagnosis of Crohn's disease, however, patient unaware of this diagnosis. Of note, patient does have anal fissure and terminal ileitis on CT which is consistent with Crohn's disease. Patient has no family history of IBD or colon cancer. Patient has had several episodes of cyclic vomiting. -CT abdomen and pelvis with contrast demonstrated mild thickening and stranding of the terminal ileum consistent with possible Crohn's disease. No strictures or obstruction. -Attempted capsaicin 4 times daily for symptom control, but patient did not tolerate this treatment due to severe burning and a localized rash. -Continued supportive treatment with IV fluid hydration and antiemetics with Zofran, Reglan, and Phenergan suppository as needed. -Continued to slowly advance diet as tolerated. Patient currently tolerating liquids and soft diet. -Consulted general surgery, Dr. Britt, who thought that patient was likely having a Crohn's flare and started IV steroid. Patient improved with IV steroid and was placed on a slow prednisone taper over the next 4 weeks. -Recommended expedited GI referral for evaluation and treatment of Crohn's disease per PCP. 2. Acute dehydration, present on admission. Resolved. -Patient presented severely hemoconcentrated with hemoglobin 16.6 on admission which improved with IV fluid hydration. -Continued IV fluids until adequately hydrated then discontinued. Continued to encourage p.o. intake of fluids. 3. Acute hypokalemia, not present on admission. Resolved. -Secondary to GI losses. -Potassium level dropped on two different occasions to 2.8 and 2.9 after several episodes of vomiting. Received potassium chloride 60 mEq IV x2. Potassium level now normal at 3.6. -Continued to monitor potassium level closely and replete as necessary. 4. Leukocytosis, acuity unknown but possibly chronic, present on admission. Stable. -Unclear baseline WBC. Patient has leukocytosis present in 2017 but no other WBC level to compare to since. Leukocytosis likely due to inflammation from underlying untreated Crohn's disease. 5. Schizophrenia, present on admission. Stable. -Continued home mirtazapine 30 mg daily at bedtime and risperidone 1 mg twice daily. 6. Hyperglycemia, present on admission. Resolved. -Hemoglobin A1c normal at 5.4%. Blood glucose normalized. Exam Vital Signs (past 8 hours): Oxygen Delivery Method Room Air Oxygen Flow Rate 0 Narrative Exam Narrative: General: Middle-aged female sitting in bed and in no acute distress, well-developed, well-nourished, more withdrawn today, depressed mood, otherwise appropriately interactive. HEENT: Normocephalic, atraumatic. External ears without defect. Pupils equal, round, and reactive to light. Anicteric sclerae, moist conjunctivae, and no lid lag. Large vertical scar on chin. Oropharynx free of erythema and cobble stoning with moist mucosa. Neck: Supple with full range of motion. No lymphadenopathy or thyromegaly. Cardiovascular: Regular rate and rhythm without murmurs, rubs, or gallops appreciated. Pulmonary: Clear to auscultation bilaterally without crackles, wheezes, or rhonchi. Normal respiratory effort with no use of accessory muscles. Abdomen: Soft, bowel sounds present, non-tender, non-distended. No hepatosplenomegaly or masses appreciated. Extremities: No clubbing, cyanosis, or edema. Skin: Normal temperature, turgor, and texture; no rash, ulcers, or subcutaneous nodules appreciated. Neurological: Cranial nerves grossly intact. Psychiatric: Withdrawn, depressed mood and flat affect. Alert and oriented to person, place, and time. Objective Labs Result Diagrams: 08/13/19 05:31 08/13/19 05:31 Labs: Laboratory Results - last 24 hr 08/12/19 08/12/19 08/13/19 08:35 08:35 05:31 WBC 12.2 H 14.7 H RBC 4.84 5.01 Hgb 15.5 16.1 H Hct 46.1 H 47.5 H MCV 95.2 94.9 MCH 32.0 32.2 MCHC 33.6 33.9 RDW 13.0 13.3 Plt Count 295 319 Neut % (Auto) 71.2 73.3 Lymph % (Auto) 17.6 L 16.5 L [place] % (Auto) 10.5 9.4 Eos % (Auto) 0.1 L 0.1 L Baso % (Auto) 0.6 0.7 Neut # (Auto) 8700 H 07313 H Lymph # (Auto) 2100 2400 [place] # (Auto) 1300 H 1400 H Eos # (Auto) 0 0 Baso # (Auto) 100 100 Sodium 140 Potassium 2.9 L Chloride 101 Carbon Dioxide 23 BUN 14 Creatinine 0.76 Estimated GFR > 60.0 BUN/Creatinine Ratio 18.4 Glucose 99 Calcium 9.0 Magnesium 2.2 08/13/19 05:31 WBC RBC Hgb Hct MCV MCH MCHC RDW Plt Count Neut % (Auto) Lymph % (Auto) [place] % (Auto) Eos % (Auto) Baso % (Auto) Neut # (Auto) Lymph # (Auto) [place] # (Auto) Eos # (Auto) Baso # (Auto) Sodium 139 Potassium 3.6 Chloride 104 Carbon Dioxide 23 BUN 14 Creatinine 0.78 Estimated GFR > 60.0 BUN/Creatinine Ratio 17.9 Glucose 111 H Calcium 9.5 Magnesium 2.4 H Discharge Plan Discharge Plan Patient Disposition: Home Discharge comment: You are being discharged home. You're being treated for a likely Crohn's flare. You have been prescribed a prednisone taper over the next 4 weeks. Please follow-up with your primary care physician in the next 1 week regarding your hospitalization and for an expedited referral to GI to evaluate, diagnose and treat Crohn's disease. You also need a screening colonoscopy for colon cancer. Please continue to slowly advance your diet as tolerated and try to stay well hydrated. Please stop using marijuana indefinitely and recommend avoiding NSAIDs such as ibuprofen, etc as these can be abrasive to the GI tract and cause inflammation such as gastritis and ulcerations which may provoke nausea and vomiting. You were prescribed Zofran 4 mg every 8 hours as needed for severe nausea. Discharge orders & Medications Prescriptions: New ondansetron 4 mg tablet,disintegrating 4 mg PO Q8H PRN (Reason: nausea and vomiting) Qty: 10 RF: 0 prednisone 10 mg tablet See Rx Instructions .ROUTE .COMPLEX Qty: 70 RF: 0 Continued esomeprazole magnesium [Nexium] 40 MG capsule,delayed release(DR/EC) 40 mg PO QDAY Qty: 30 RF: 0 mirtazapine [Remeron] 30 MG tablet 30 mg PO HS Qty: 30 RF: 12 risperidone [Risperdal] 1 MG tablet 1 mg PO BID Qty: 60 RF: 6 Discontinued ibuprofen 800 MG tablet 800 mg PO QDAY Qty: 30 RF: 3 Follow up/Referrals: Arie Padilla [Non-Staff] - 08/15/19 9:30 am (appt. SundayAugust 14 @ 9:[address] Padilla.) Diet/Activity/Treatments Diet: Diet as Tolerated Activity: Activity as tolerated Visit Report/Discharge Packet Instructions: DI for Crohn's Disease, [place] Diet, Prednisone, Ondansetron, DI for Cannabinoid Hyperemesis Syndrome Quality VTE Deep Vein Thrombosis/Pulmonary Embolism Present on Admission: No
[2019-08-13] MEDS: predniSONE 20 MG TABLET 40 MG PO (10:00)
[2019-08-13] MEDS: SODIUM CHLORIDE 0.9% FLUSH 10 ML IV (10:00)
[2019-08-13] MEDS: PANTOPRAZOLE 40 MG VIAL IV (10:00)
--- NOTE | 2019-08-13 11:38 | PC.NURSE ---
Patient eager to go home. Discharge instructions reviewed with patient, including her prescriptions and medications, patient states understanding and has no further questions or concerns at this time. IV was removed intact. Patient has follow up scheduled with her PCP, and encouraged to seek GI consult with colonoscopy as she discussed with Dr. Keys. Patient escorted out via wheelchair by LIMB DRIVER with all her belongings, picked up by her to be discharged to home.
== END 2019-08-13 11:40 | disposition home or self-care (01) | DRG 245 ==
LOC: ED 08-08 03:47 → AC 08-08 06:55
PROVIDERS: Emergency Medicine; Family Medicine; Internal Medicine; Admitting Provider Nurse Practitioner Family; Emergency Provider Emergency Medicine; Referring Provider Emergency Medicine; Visit Provider Nurse Practitioner Family
DX: K50.00 Crohn's disease of small intestine without complications (principal); F12.188 Cannabis abuse with other cannabis-induced disorder; R11.10 Vomiting, unspecified; E87.2 Acidosis; E86.0 Dehydration; E87.6 Hypokalemia; R73.9 Hyperglycemia, unspecified; D72.829 Elevated white blood cell count, unspecified; F20.9 Schizophrenia, unspecified; F17.210 Nicotine dependence, cigarettes, uncomplicated
CPT/HCPCS: 36415; 74022; 74176; 80048; 80053; 81001; 82009; 82962; 83036; 83605; 83690; 83735; 84145; 85025; 85651; 86140; 87040; 93005; 96361; 96365; 96367; 96368; 96375; 96376; 99253; 99284; 99285; G0378; C9113; J1200; J1630; J1650; J2060; J2405; J2543; J2765; J2930; J3480